=== PATIENT | male | born 1940 | race Caucasian/White ===

== ENCOUNTER 2020-01-19 16:49 | Emergency (ER) | payer MEDICARE ==
[2020-01-19] MEDS ORDERED: ALPR1TAB7 PO (17:14)
[2020-01-19] MEDS ORDERED: ZOLP10TA2 PO (17:18)
[2020-01-19] MEDS ORDERED: ATOR80TA PO (17:18)
[2020-01-19] MEDS ORDERED: HYDR-3980 PO (17:18)
[2020-01-19] MEDS ORDERED: CARB200T PO (17:18)
[2020-01-19] MEDS ORDERED: TRAZ-252 PO (17:18)
[2020-01-19] MEDS ORDERED: LOSA100T31 PO (17:18)
[2020-01-19] MEDS ORDERED: ACETAMINOPHEN 325 MG TABLET PO ONE (18:00)
[2020-01-19] MEDS ORDERED: ACETAMINOPHEN 325 MG TABLET ONE (18:37)
== END 2020-01-19 18:46 | disposition home or self-care (01) ==
DX: L76.22 Postprocedural hemorrhage of skin and subcutaneous tissue following other procedure (principal); I10 Essential (primary) hypertension; E78.00 Pure hypercholesterolemia, unspecified; Z98.890 Other specified postprocedural states; Z85.22 Personal history of malignant neoplasm of nasal cavities, middle ear, and accessory sinuses; Z79.899 Other long term (current) drug therapy

== ENCOUNTER 2021-05-29 11:49 | Emergency (ER) | payer MEDICARE ==
[~2021-05-29] VITALS: Ht 180.3 cm; Wt 83.9 kg
[~2021-05-29 11:49] MED LIST: ALPR1TAB7 PO; ATOR80TA PO; CARB200T PO; HYDR-3980 PO; LOSA100T31 PO; TRAZ-252 PO; ZOLP10TA2 PO
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
--- NOTE | 2021-05-29 12:01 | NUR ---
CLIENT DIRECTOR AT BEDSIDE FOR GLUCOSE CHECK
--- NOTE | 2021-05-29 12:13 | NUR ---
HOLLAND RENEEW,CALLED FOR POSSIBLE PLACEMENT AND OR ADULT PROTECTIVE SERVICES PER DR DE JESUS SINCE HE CAN'T TAKE CARE OF HIMSELF AND HIS
--- NOTE | 2021-05-29 12:15 | NUR ---
PT TO RADIOLOGY FOR HEAD CT SCAN VIA [facility].
[2021-05-29] MEDS ORDERED: IV NS 0.9% 1,000 ML BAG IV ONE (12:30)
--- NOTE | 2021-05-29 12:30 | NUR ---
BLOOD COLLECTED AND SENT TO LAB
--- NOTE | 2021-05-29 12:35 | NUR ---
URINE COLLECTED AND SENT TO LAB
--- NOTE | 2021-05-29 13:10 | NUR ---
PT AMBULATED TO THE RESTROOM, STEADY GAIT
[2021-05-29 13:32] LABS: BASOPHILS % (AUTO) 0.5 % (0.0-2.0); EOSINOPHILS % (AUTO) 1.9 % (0.0-6.0); HEMATOCRIT 33 % (39-51); HEMOGLOBIN 11.2 g/dL (13.5-17.5); LYMPHOCYTES # (AUTO) 0.6 K/uL (0.8-4.8); LYMPHOCYTES % (AUTO) 12.2 % (20.0-44.0); MEAN CORPUSCULAR HGB CONC 34 g/dl (31.0-36.0); MEAN CORPUSCULAR VOLUME 92 fL (80-96); MONOCYTES # (AUTO) 0.4 K/uL (0.1-1.30); MONOCYTES % (AUTO) 8.6 % (2.0-12.0); NEUTROPHILS % (AUTO) 76.8 % (43.0-81.0); PLATELET COUNT (AUTO) 196 K/uL (150-450); RED BLOOD CELL COUNT(AUTO) 3.57 MIL/uL (4.5-6.0); WHITE BLOOD COUNT (AUTO) 5.2 K/uL (4.3-11.0)
[2021-05-29 13:51] LABS: CALCIUM, SERUM 8.4 mg/dL (8.5-10.1); CARBON DIOXIDE 28 mmol/L (21-32); CHLORIDE 104 mmol/L (98-107); CREATININE 0.9 mg/dL (0.6-1.3); GLUCOSE 152 mg/dL (74-106); POTASSIUM 3.6 mmol/L (3.5-5.1); SODIUM SERUM 138 mmol/L (136-145); UREA NITROGEN, BLOOD 18 mg/dL (7-18)
[2021-05-29 13:53] LABS: SERUM AMMONIA 26 umol/L (11-32)
[2021-05-29 13:57] LABS: ALANINE AMINOTRANSFERASE 23 U/L (12-78); ALBUMIN 3.3 g/dL (3.4-5.0); ALKALINE PHOSPHATASE 79 U/L (46-116); ASPARTATE AMINOTRANSFERASE 25 U/L (15-37); BILIRUBIN,DIRECT 0.2 mg/dL (0.0-0.2); BILIRUBIN,TOTAL 0.4 mg/dL (0.2-1.0); TOTAL PROTEIN, SERUM 6.6 g/dL (6.4-8.2)
[2021-05-29 14:10] LABS: ALCOHOL, BLOOD < 3 mg/dL (0-0)
[2021-05-29 14:34] LABS: BILIRUBIN,URINE NEGATIVE (NEGATIVE); COLOR,URINE YELLOW (YELLOW); LEUKOCYTE ESTERASE ,URINE NEGATIVE (NEGATIVE); NITRITE, URINE NEGATIVE (NEGATIVE); PROTEIN,URINE NEGATIVE (NEGATIVE); UGLUCOSE NEGATIVE (NEGATIVE); UROBILINOGEN,URINE 0.2 EU/dL (0.2)
[2021-05-29 14:36] LABS: THYROID STIMULATING HORMONE 4.241 uIU/mL (0.358-3.74)
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
--- NOTE | 2021-05-29 15:20 | NUR ---
IV removed. Catheter intact and site benign. Pressure and 4x4 applied to site. No bleeding noted.
--- NOTE | 2021-05-29 15:40 | NUR ---
Patient discharged to home in stable condition. Written and verbal after care instructions given. Patient verbalizes understanding of instruction.
[2021-05-29 16:01] VITALS: BP 140/57
== END 2021-05-29 16:02 | disposition home or self-care (01) ==
LOC: ER 11:51
DX: G93.40 Encephalopathy, unspecified (principal); E16.2 Hypoglycemia, unspecified; R00.1 Bradycardia, unspecified; I10 Essential (primary) hypertension; E78.00 Pure hypercholesterolemia, unspecified; Z87.728 Personal history of other specified (corrected) congenital malformations of nervous system and sense organs; Z85.22 Personal history of malignant neoplasm of nasal cavities, middle ear, and accessory sinuses; M19.90 Unspecified osteoarthritis, unspecified site; Z79.891 Long term (current) use of opiate analgesic; Z79.811 Long term (current) use of aromatase inhibitors; Z79.899 Other long term (current) drug therapy; V49.9XXA Car occupant (driver) (passenger) injured in unspecified traffic accident, initial encounter; Y93.89 Activity, other specified; Y92.89 Other specified places as the place of occurrence of the external cause; Y99.8 Other external cause status
CPT/HCPCS: 36415; 70450; 71045; 80048; 80076; 80307; 80320; 81003; 82140; 82962; 84443; 84484; 85025; 93005; 96360; 99285; J7030; G0480

== ENCOUNTER 2021-08-24 21:50 | Inpatient (IN) | payer MEDICARE ==
[~2021-08-24] VITALS: Ht 182.9 cm; Wt 72.6 kg
--- NOTE | 2021-08-24 22:20 | NUR ---
CANDACE 102 FROM HOME C/O OD ON TEGRETOL TOOK 3 TABS WITHIN 3 HRS. C/O GEN WEAKNESS. PT A/OX3. TOLERATING R/A WELL WITH NO SOB. CONNECTED PT TO POX AND MONITOR. SAFETY MEASURES IN PLACE
--- NOTE | 2021-08-24 22:29 | NUR ---
PER POSION CONTROL (DENIS) RETAKE TEGRATOL LEVEL IN 4 HOURS WATCH OUT FOR: SEIZURE HYPONATREMIA
[2021-08-24] MEDS ORDERED: IV NS 0.9% 1,000 ML BAG IV ONE (23:00)
--- NOTE | 2021-08-24 23:09 | NUR ---
RAC #18G S/L; PATENT AND INTACT. BLOOD COLLECTED AND SENT TO LAB
--- NOTE | 2021-08-24 23:10 | NUR ---
COVID ANTIGEN SWAB COLLECTED AND SENT TO LAB
--- NOTE | 2021-08-24 23:24 | NUR ---
URINE SPECIMEN SENT TO LAB
[2021-08-24 23:26] LABS: BASOPHILS % (AUTO) 0.2 % (0.0-2.0); EOSINOPHILS % (AUTO) 0.3 % (0.0-6.0); HEMATOCRIT 45 % (39-51); HEMOGLOBIN 15.1 g/dL (13.5-17.5); LYMPHOCYTES # (AUTO) 0.5 K/uL (0.8-4.8); LYMPHOCYTES % (AUTO) 6.2 % (20.0-44.0); MEAN CORPUSCULAR HGB CONC 33 g/dl (31.0-36.0); MEAN CORPUSCULAR VOLUME 90 fL (80-96); MONOCYTES # (AUTO) 0.5 K/uL (0.1-1.30); MONOCYTES % (AUTO) 5.8 % (2.0-12.0); NEUTROPHILS # (AUTO) 7.7 K/uL (1.8-8.9); NEUTROPHILS % (AUTO) 87.5 % (43.0-81.0); PLATELET COUNT (AUTO) 280 K/uL (150-450); RED BLOOD CELL COUNT(AUTO) 5.04 MIL/uL (4.5-6.0); WHITE BLOOD COUNT (AUTO) 8.8 K/uL (4.3-11.0)
[2021-08-25 00:04] LABS: BILIRUBIN,URINE SMALL (NEGATIVE); COLOR,URINE YELLOW (YELLOW); LEUKOCYTE ESTERASE ,URINE NEGATIVE (NEGATIVE); NITRITE, URINE NEGATIVE (NEGATIVE); PH,URINE 5.5 (5.0-8.0); PROTEIN,URINE 30 mg/dl (NEGATIVE); UGLUCOSE NEGATIVE (NEGATIVE); UROBILINOGEN,URINE 0.2 EU/dL (0.2)
[2021-08-25 00:07] LABS: ALANINE AMINOTRANSFERASE 28 U/L (12-78); ALBUMIN 3.5 g/dL (3.4-5.0); ALKALINE PHOSPHATASE 106 U/L (46-116); ASPARTATE AMINOTRANSFERASE 41 U/L (15-37); BILIRUBIN,TOTAL 0.4 mg/dL (0.2-1.0); CALCIUM, SERUM 8.5 mg/dL (8.5-10.1); CARBON DIOXIDE 29 mmol/L (21-32); CHLORIDE 102 mmol/L (98-107); CREATININE 0.8 mg/dL (0.6-1.3); GLUCOSE 166 mg/dL (74-106); POTASSIUM 4.6 mmol/L (3.5-5.1); SODIUM SERUM 136 mmol/L (136-145); TOTAL PROTEIN, SERUM 7.6 g/dL (6.4-8.2); UREA NITROGEN, BLOOD 24 mg/dL (7-18)
[2021-08-25 00:12] LABS: ACETAMINOPHEN < 2 ug/ml (10-30); ALCOHOL, BLOOD < 3 mg/dL (0-0)
[2021-08-25 00:18] LABS: CARBAMAZEPINE (TEGRETOL) 20.5 ug/ml (4-11.9)
--- NOTE | 2021-08-25 00:18 | NUR ---
CARBAMAZIPINE 20.5
[2021-08-25] MEDS ORDERED: IV NS 0.9% 1,000 ML BAG IV ONE (02:00)
[2021-08-25] MEDS ORDERED: LABETALOL HCL IV 100MG VIAL ONE (02:10)
--- NOTE | 2021-08-25 02:16 | NUR ---
BP 196/144, HR 119. ADMINISTERED LABETOLOL 10MG IVP PER DR. MALLORY ORDER. WILL REASSES V/S IN 30 MINUTES.
[2021-08-25] MEDS ORDERED: ONDANSETRON HCL/PF 4 MG/2 ML VIAL IVP PRN (02:30)
[2021-08-25] MEDS ORDERED: ACETAMINOPHEN 325 MG TABLET PO PRN (02:30)
[2021-08-25] MEDS ORDERED: MAG HYDROX/AL HYDROX/SIMETH 30 ML UDC PO PRN (02:30)
[2021-08-25] MEDS ORDERED: MORPHINE SULFATE INJ 2 MG/ML DISP.SYRIN IV PRN (02:30)
[2021-08-25] MEDS ORDERED: LABETALOL 20 MG/4 ML VIAL IV ONE (02:30)
[2021-08-25] MEDS ORDERED: MAGNESIUM HYDROXIDE 30 ML UDC PO PRN (02:30)
[2021-08-25] MEDS ORDERED: Z GUARD REMEDY 4 OZ OINT TP PRN (02:30)
--- NOTE | 2021-08-25 02:32 | NUR ---
MRSA SWAB COLLECTED AND SENT TO LAB. PATIENT'S BELONGINGS LIST DONE.
--- NOTE | 2021-08-25 03:19 | NUR ---
REPORT GIVEN TO VEE MAR RN FOR SANCHEZ.
--- NOTE | 2021-08-25 03:19 | NUR ---
RN NOTE REPORT RECEIVED BY JAMISON PARIS FOR SANCHEZ.
--- NOTE | 2021-08-25 03:25 | NUR ---
RN NOTE PT TRANSFERRED TO [facility] VIA GURNEY FROM ER. PT IS ON ROOM AIR SHOWING NO S/SX OF RESP DISTRESS/SOB. BREATHING EVEN AND UNLABORED. PT DENIES ANY PAIN. PT IS A/OX4. ON RASCHEL KNITTING MACHINE OPERATOR CURRENTLY SHOWING ST. WOUND PICTURES PLACED IN CHART. IV ACCESS NOTED ON RIGHT AC #18. LINE FLUSHED, PATENT, AND INTACT WITH NO SIGNS OF INFILTRATION. ALL SAFETY MEASURES IMPLEMENTED. CALL LIGHT WITHIN REACH. HOB ELEVATED. BED LOCKED AND IN LOWEST POSITION. SIDE RAILS UP. WILL CONTINUE TO MONITOR AND ASSESS FOR ANY CHANGES DURING SHIFT.
--- NOTE | 2021-08-25 03:31 | NUR ---
PT TRANSFERRED TO [facility] VIA ACLS PROTOCOL. ALL BELONGINGS AT PT'S BEDSIDE
[2021-08-25 03:40] VITALS: BP 161/110
[2021-08-25] MEDS: IV NS 0.9% 1,000 ML IV PRN ×2 (06:05→20:04)
--- NOTE | 2021-08-25 06:26 | NUR ---
RN NOTE NO CHANGES IN PT CONDITION DURING SHIFT. PT IS ON ROOM AIR SHOWING NO S/SX OF RESP DISTRESS/SOB. BREATHING EVEN AND UNLABORED. IV ACCESS NOTED ON RIGHT AC #18. LINE FLUSHED, PATENT, AND INTACT WITH NO SIGNS OF INFILTRATION. ALL SAFETY MEASURES IMPLEMENTED. ALL DUE MEDS GIVEN ORDERED. PT KEPT CLEAN AND COMFORTABLE. CALL LIGHT WITHIN REACH. HOB ELEVATED. BED LOCKED AND IN LOWEST POSITION. SIDE RAILS UP. WILL ENDORSE TO MORNING SHIFT RN FOR SANCHEZ.
--- NOTE | 2021-08-25 07:42 | NUR ---
FITNESS SALES CONSULTANT OPENING NOTES: RN OPENING NOTE RECEIVED PT IN BED, A/O X3-4. RESPIRATION IS EVEN AND UNLABORED, NO SOB NOTED AT THIS TIME. SKIN WARM AND INTACT. RIGHT AC HEPLOCK GAUGE [address] RUNNING NS AT 75CC/HR. ALL SAFETY MEASURES IN PLACE. BED LOCKED AND IN LOWEST POSITION, BED ALARM ON. CALL LIGHT WITHIN REACH, 3 SIDE RAILS UP. WILL CONTINUE TO MONITOR.
[2021-08-25 08:00] VITALS: BP 139/99
--- NOTE | 2021-08-25 08:00 | NUR ---
WOUND CARE CONSULT: PT PRESENTS WITH SKIN TEARS TO BILATERAL ARMS, PRESENT ON ADMISSION. PT DEMONSTRATES ABILITY TO TURN AND REPOSITION IN BED AND IS CONTINENT. DISCUSSED WOUND CARE AND SKIN PROTECTION WITH NURSING STAFF. MD IN AGREEMENT WITH PLAN OF CARE.
[2021-08-25] MEDS: PANTOPRAZOLE 40 MG TABLET.DR PO SCH (08:07)
[2021-08-25] MEDS ORDERED: ATOR80TA PO (10:06)
[2021-08-25] MEDS ORDERED: METO25TA20 PO (10:07)
[2021-08-25 12:00] VITALS: BP 141/110
[2021-08-25 16:00] VITALS: BP 134/97
--- NOTE | 2021-08-25 16:14 | NUR ---
rn notes: per poison control dept called and reuest EKG done due to tachycardia and kylee blood pressure, step daughter called and request psych consult saying he may be suicidal that is why he swallow 3 tablet of tegretol.patient denied any suicidal thought, seems very confused and forgetful, call DR Rashard Ann who said he does not seem suicidal to me with order of EKG and psych consult
--- NOTE | 2021-08-25 19:30 | NUR ---
RN CLOSING NOTES: PT IN BED, A/O X3-4 BUT VERY CONFUSED AND FORGETFUL. RESPIRATION IS EVEN AND UNLABORED, NO SOB NOTED AT THIS TIME. SKIN WARM AND INTACT. SINUS TACHY ON TEL3 MONITOR, md AWARE,ekg DONE .RIGHT AC HEPLOCK GAUGE [address] RUNNING NS AT 75CC/HR. ALL SAFETY MEASURES IN PLACE. BED LOCKED AND IN LOWEST POSITION, BED ALARM ON. CALL LIGHT WITHIN REACH, 3 SIDE RAILS UP. WILL CONTINUE TO MONITOR.
--- NOTE | 2021-08-25 21:08 | NUR ---
PRICE ANALYST NOTE POISON CONTROL LINNETTE CALLED AND INFORMED IF TONIGHT EKG QRS IS GREATER THAN 500 THEM 1-2 GM MAG RECOMMENDED IF BELOW 500 NO NEED TO DO ANY THING AT THIS TIME. WILL FOLLOW UP.
[2021-08-25 22:00] VITALS: BP 138/109
--- NOTE | 2021-08-25 22:28 | NUR ---
LABORATORY AIDE NOTE EKG DONE QRSD IS 85, HEATHER INFORMED NO NEW ORDER AT THIS TIME.
--- NOTE | 2021-08-25 22:50 | NUR ---
hospice spiritual care coordinator Opening Note Pt received lying in bed awake, A&O x4, forgetful. Pt on RA with O2sat 97%; no s/s of resp distress, no SOB noted, non-labored breathing. Pt attached to external monitor, ST noted with HR of 130; pt denies any chest pain. IV access right AC 18G intact and patent with NS at 75 ml/hr; no s/s of infiltration. Will continue to implement seizure precautions. Bed in lowest position, side rails up x3, call light within reach. Will monitor throughout the night.
[2021-08-26] VITALS: BP 165/126
[2021-08-26] MEDS: LORAZEPAM INJ 2 MG/ML VIAL IV PRN (00:56)
--- NOTE | 2021-08-26 01:06 | NUR ---
Patient feels anxious, restless and requests for "something to sleep". Ativan 1 mg IV PRN given at 0056. Will follow-up for effectiveness.
[2021-08-26 04:00] VITALS: BP 165/118
--- NOTE | 2021-08-26 06:31 | NUR ---
manager science Closing Note Pt in bed awake, slept intermittently, A&O x4, but forgetful. Pt on RA, O2sat 98%; no s/s of resp distress, no SOB, non-labored breathing. Pt attached to monitor; ST throughout the night with HR 131. IV right AC 18G intact and patent; no s/s of infiltration, NS at 75 ml/hr. All due meds and fluids given. Bed in lowest position, call light within reach, side rails up x3. Will endorse to dayshift nurse to continue care.
[2021-08-26 06:36] LABS: BASOPHILS % (AUTO) 0.3 % (0.0-2.0); EOSINOPHILS % (AUTO) 1.3 % (0.0-6.0); HEMATOCRIT 41 % (39-51); LYMPHOCYTES % (AUTO) 14.1 % (20.0-44.0); MEAN CORPUSCULAR HGB CONC 34 g/dl (31.0-36.0); MEAN CORPUSCULAR VOLUME 90 fL (80-96); MONOCYTES # (AUTO) 0.6 K/uL (0.1-1.30); MONOCYTES % (AUTO) 8.3 % (2.0-12.0); NEUTROPHILS # (AUTO) 5.5 K/uL (1.8-8.9); PLATELET COUNT (AUTO) 257 K/uL (150-450); WHITE BLOOD COUNT (AUTO) 7.2 K/uL (4.3-11.0)
[2021-08-26 06:48] LABS: CALCIUM, SERUM 7.6 mg/dL (8.5-10.1); CARBON DIOXIDE 31 mmol/L (21-32); CHLORIDE 104 mmol/L (98-107); CREATININE 0.6 mg/dL (0.6-1.3); GLUCOSE 90 mg/dL (74-106); MAGNESIUM 1.8 mg/dL (1.8-2.4); PHOSPHORUS 2.7 mg/dL (2.5-4.9); SODIUM SERUM 141 mmol/L (136-145); UREA NITROGEN, BLOOD 9 mg/dL (7-18)
[2021-08-26 07:30] LABS: CARBAMAZEPINE (TEGRETOL) 4.9 ug/ml (4-11.9)
[2021-08-26 08:00] VITALS: BP 178/110
--- NOTE | 2021-08-26 08:01 | NUR ---
RN OPENING NOTES: RECEIVED PT IN BED, A/O X3-4. RESPIRATION IS EVEN AND UNLABORED, NO SOB NOTED AT THIS TIME. SKIN WARM AND INTACT. RIGHT AC HEPLOCK GAUGE [address] RUNNING NS AT 75CC/HR. ALL SAFETY MEASURES IN PLACE. BED LOCKED AND IN LOWEST POSITION, BED ALARM ON. CALL LIGHT WITHIN REACH, 3 SIDE RAILS UP.
[2021-08-26] MEDS: POTASSIUM CHLORIDE 20 MEQ TAB.PRT.SR PO SCH ×2 (09:30→11:12)
[2021-08-26] MEDS: PANTOPRAZOLE 40 MG TABLET.DR PO SCH (10:34)
[2021-08-26] MEDS ORDERED: POTASSIUM CHLORIDE 20 MEQ TAB.PRT.SR PO SCH (11:00)
[2021-08-26] MEDS ORDERED: hydrALAZINE HCL 25 MG TABLET PO PRN (11:30)
[2021-08-26 12:00] VITALS: BP 131/92
[2021-08-26 13:34] LABS: THYROID STIMULATING HORMONE 4.896 uIU/mL (0.358-3.74)
[2021-08-26 16:00] VITALS: BP 145/96
[2021-08-26] MEDS: CARBAMAZEPINE 200 MG TABLET PO SCH ×2 (16:16→20:46)
[2021-08-26] MEDS: METOPROLOL TARTRATE 25 MG TABLET PO SCH (16:16)
[2021-08-26] MEDS: IV NS 0.9% 1,000 ML IV PRN (18:19)
--- NOTE | 2021-08-26 19:00 | NUR ---
RN NOTE PATIENT REFUSES TO BE CONNECTED TO IV RUNNING NS AT 75MLS HR. PER PATIENT "WILL LIKE A BREAK AND RESTART IN THE AM" WILL ENDORSE TO NIGHT NURSE
--- NOTE | 2021-08-26 19:13 | NUR ---
RN CLOSING NOTES: PT IN BED, A/O X3-4 BUT VERY CONFUSED AND FORGETFUL. RESPIRATION IS EVEN AND UNLABORED, NO SOB NOTED AT THIS TIME. SKIN WARM AND INTACT. ALL SAFETY MEASURES IN PLACE. BED LOCKED AND IN LOWEST POSITION, BED ALARM ON. CALL LIGHT WITHIN REACH, 3 SIDE RAILS UP.
[2021-08-26 20:00] VITALS: BP 132/84
--- NOTE | 2021-08-26 20:21 | NUR ---
wind tunnel technician Opening Note Pt received in bed, awake, A/O x3, requires reorientation, cooperative. Pt on RA with O2sat >90%; no s/s of resp distress, no SOB noted, non-labored breathing; appears comfortable. Attached to external monitor, noted to have Aflutter with HR 132; pt denies feelings of chest pain or SOB. IV access right AC 18G; received pt disconnected from IV fluids; dayshift nurse endorsed pt wanted a break from receiving IV fluids. Bed in lowest position, call light within reach, side rails up x3. Will continue to monitor throughout the night.
[2021-08-26] MEDS: ATORVASTATIN 40 MG TABLET PO SCH (21:31)
[2021-08-27] VITALS (9 sets, daily range): BP systolic 11–156; BP diastolic 63–106
--- NOTE | 2021-08-27 | NUR ---
RN Note Pt reports of feeling anxious and requests to receive ativan. Due to pt's IV line leaking, 18G IV right AC was discontinued. Requested order from Dr. Parul Pantoja for Ativan IM; Dr. Pantoja ordered Ativan 0.5 mg IM x1. Order obtained and carried out.
[2021-08-27] MEDS: LORAZEPAM INJ 2 MG/ML VIAL IV PRN ×2 (00:43→20:36)
--- NOTE | 2021-08-27 01:02 | NUR ---
RN Note IV start attempted by 2 nurses, but unsuccessful. Mireille from ICU successfully started new IV access on left hand 20G; appears intact and patent. Will continue to monitor throughout the night.
--- NOTE | 2021-08-27 01:09 | NUR ---
RN Note Pt agreed to be reconnected to IV with NS running at 75 ml/hr.
[2021-08-27 06:20] LABS: BASOPHILS % (AUTO) 0.2 % (0.0-2.0); EOSINOPHILS % (AUTO) 1.4 % (0.0-6.0); HEMATOCRIT 40 % (39-51); HEMOGLOBIN 13.6 g/dL (13.5-17.5); LYMPHOCYTES # (AUTO) 1.2 K/uL (0.8-4.8); LYMPHOCYTES % (AUTO) 12.9 % (20.0-44.0); MEAN CORPUSCULAR HGB CONC 34 g/dl (31.0-36.0); MEAN CORPUSCULAR VOLUME 90 fL (80-96); MONOCYTES # (AUTO) 0.8 K/uL (0.1-1.30); MONOCYTES % (AUTO) 8.3 % (2.0-12.0); NEUTROPHILS # (AUTO) 7.1 K/uL (1.8-8.9); NEUTROPHILS % (AUTO) 77.2 % (43.0-81.0); PLATELET COUNT (AUTO) 248 K/uL (150-450); WHITE BLOOD COUNT (AUTO) 9.1 K/uL (4.3-11.0)
--- NOTE | 2021-08-27 06:20 | NUR ---
RN Note Pt refuses to be connected to IV with NS running at 75 ml/hr saying that "it's a bother". Will endorse to oncoming daysflft nurse.
--- NOTE | 2021-08-27 06:21 | NUR ---
automotive starter repairer Closing Note Pt in bed, awake, A/O x4, forgetful, requires reorientation and reminders, cooperative. Pt reports of not being able to sleep at night. Pt on RA with O2sat 99%; no s/s of resp distress, no SOB noted, non-labored breathing; appears comfortable. Attached to external monitor, pt was Aflutter throughout the night with HR 135; no chest pain or SOB per pt report. IV access right AC 18G d/c'd and new IV started at left hand 20G. New IV intact and patent; no s/s of infiltration. Pt asks to be disconnected from IVF and refuses to be connected to it. Bed in lowest position, side rails up x3, call light within reach. Will endorse to dayshift nurse to continue care.
[2021-08-27 07:11] LABS: CALCIUM, SERUM 8.3 mg/dL (8.5-10.1); CARBON DIOXIDE 29 mmol/L (21-32); CHLORIDE 102 mmol/L (98-107); CREATININE 0.7 mg/dL (0.6-1.3); GLUCOSE 99 mg/dL (74-106); MAGNESIUM 1.9 mg/dL (1.8-2.4); PHOSPHORUS 2.9 mg/dL (2.5-4.9); POTASSIUM 3.2 mmol/L (3.5-5.1); SODIUM SERUM 138 mmol/L (136-145); UREA NITROGEN, BLOOD 11 mg/dL (7-18)
--- NOTE | 2021-08-27 08:00 | NUR ---
desk attendant Opening Note Pt received in bed, awake, A/O x3, requires reorientation, cooperative. Pt on RA; no s/s of resp distress, no SOB noted, non-labored breathing; appears comfortable. Attached to external monitor, noted to have Aflutter earlier in the shift with HR 130, later switched to Afib; pt denies feelings of chest pain, palpitations, or SOB. IV access left hand 20G; pt not connected to IVF NS 75 ml/hr, stating it's a bother to him. Bed in lowest position, call light within reach, side rails up x3. Will continue to monitor throughout the day.
[2021-08-27] MEDS: CARBAMAZEPINE 200 MG TABLET PO SCH ×4 (08:33→21:10)
[2021-08-27] MEDS: METOPROLOL TARTRATE 25 MG TABLET PO SCH ×2 (08:34→16:46)
[2021-08-27] MEDS: PANTOPRAZOLE 40 MG TABLET.DR PO SCH (08:34)
[2021-08-27] MEDS ORDERED: AMIODARONE 150 MG in IV D5W 100 ML IV ONE (10:00)
[2021-08-27] MEDS: AMIODARONE 450 MG in IV D5W 241 ML IV PRN ×2 (10:47→16:49)
[2021-08-27] MEDS ORDERED: POTASSIUM CHLORIDE 20 MEQ TAB.PRT.SR PO SCH (12:00)
--- NOTE | 2021-08-27 14:26 | NUR ---
RN Note Mid-shift endorsement given to Mili PARIS. Updated RN with pt's health status and all due meds and fluids that were administered from [id number].
--- NOTE | 2021-08-27 18:44 | NUR ---
RN CLOSING NOTES: PT IN BED, A/O X3-4L. RESPIRATION IS EVEN AND UNLABORED, NO SOB NOTED AT THIS TIME PATIENT ON ROOM AIR. PATIENT IS AMBULATORY TO BEDSIDE COMMODE. LEFT HAND 20G RUNNING AMIODARONE 0.5MG/MIN. ALL SAFETY MEASURES IN PLACE. BED LOCKED AND IN LOWEST POSITION, BED ALARM ON. CALL LIGHT WITHIN REACH, 3 SIDE RAILS UP. WILL ENDORSE TO NIGHT NURSE FOR SANCHEZ.
--- NOTE | 2021-08-27 19:54 | NUR ---
RN NOTE PATIENT IN BED ALERT AND ORIENTED X4, FORGETFUL AT TIMES. ON ROOM AIR, NO S/S OF RESPIRATORY DISTRESS. DENIES ANY PAIN AT THIS TIME. ON TELE, A-FLUTTER 120'S. ON AMIO @ 0.5MG/HR. INFUSING WELL ON RIGHT HAND #20. ALSO HAS IV ACCESS ON LEFT HAND # 20 PATENT AND INTACT. BED LOCKED AND IN LOWEST POSITION. CALL LIGHT WITHIN REACH. ALL NEEDS ANTICIPATED.
[2021-08-27] MEDS: ATORVASTATIN 40 MG TABLET PO SCH (21:10)
[2021-08-28] VITALS: BP 149/88
[2021-08-28 04:00] VITALS: BP 147/90
[2021-08-28 06:13] LABS: BASOPHILS % (AUTO) 0.2 % (0.0-2.0); EOSINOPHILS % (AUTO) 0.6 % (0.0-6.0); HEMATOCRIT 43 % (39-51); HEMOGLOBIN 14.7 g/dL (13.5-17.5); LYMPHOCYTES % (AUTO) 9.5 % (20.0-44.0); MEAN CORPUSCULAR HGB CONC 34 g/dl (31.0-36.0); MEAN CORPUSCULAR VOLUME 89 fL (80-96); MONOCYTES # (AUTO) 0.8 K/uL (0.1-1.30); MONOCYTES % (AUTO) 7.3 % (2.0-12.0); NEUTROPHILS # (AUTO) 8.9 K/uL (1.8-8.9); NEUTROPHILS % (AUTO) 82.4 % (43.0-81.0); PLATELET COUNT (AUTO) 250 K/uL (150-450); RED BLOOD CELL COUNT(AUTO) 4.81 MIL/uL (4.5-6.0); WHITE BLOOD COUNT (AUTO) 10.8 K/uL (4.3-11.0)
[2021-08-28 06:32] LABS: CALCIUM, SERUM 8.4 mg/dL (8.5-10.1); CARBON DIOXIDE 27 mmol/L (21-32); CHLORIDE 100 mmol/L (98-107); CREATININE 0.8 mg/dL (0.6-1.3); GLUCOSE 103 mg/dL (74-106); MAGNESIUM 1.8 mg/dL (1.8-2.4); POTASSIUM 3.6 mmol/L (3.5-5.1); SODIUM SERUM 135 mmol/L (136-145); UREA NITROGEN, BLOOD 12 mg/dL (7-18)
--- NOTE | 2021-08-28 06:46 | NUR ---
RN NOTE PATIENT RESTING IN BED, ALERT AND ORIENTED X3, FORGETFUL. ON ROOM AIR, NO SOB NOTED. ON TELE, A-FLUTTER 120'S. ON AMIO @ 0.5MG/HR. PATIENT PULLED OUT BOTH IV ACCESS (RIGHT AND LEFT HAND). INSERTED NEW IV ACCESS ON RIGHT AC #20 AND LEFT FOREARM #20 PATENT AND INTACT. DUE MEDS GIVEN ORDERED. BED LOCKED AND IN LOWEST POSITION. CALL LIGHT WITHIN REACH. WILL ENDORSE TO AM SHIFT.
--- NOTE | 2021-08-28 07:30 | NUR ---
RN OPENING NOTE PT IN BED, A/O X3-4L. RESPIRATION IS EVEN AND UNLABORED, NO SOB NOTED AT THIS TIME PATIENT ON ROOM AIR. PATIENT IS AMBULATORY TO BEDSIDE COMMODE. RAC 20G RUNNING AMIODARONE 0.5MG/MIN. PT ON TELE WITH SINUS TACHY IN 120'S AFIB. ALL SAFETY MEASURES IN PLACE. BED LOCKED AND IN LOWEST POSITION, BED ALARM ON. CALL LIGHT WITHIN REACH, 3 SIDE RAILS UP. WILL CONTINUE TO MONITOR.
[2021-08-28 08:00] VITALS: BP 156/111
[2021-08-28] MEDS: PANTOPRAZOLE 40 MG TABLET.DR PO SCH (08:08)
[2021-08-28] MEDS: CARBAMAZEPINE 200 MG TABLET PO SCH ×4 (08:08→21:44)
[2021-08-28] MEDS: METOPROLOL TARTRATE 25 MG TABLET PO SCH ×3 (08:08→16:46)
[2021-08-28] MEDS: AMIODARONE 450 MG in IV D5W 241 ML IV PRN ×2 (09:54→22:04)
[2021-08-28 12:00] VITALS: BP 144/102
[2021-08-28 16:00] VITALS: BP 114/80
[2021-08-28] MEDS: APIXABAN 5 MG TABLET PO SCH (16:46)
--- NOTE | 2021-08-28 18:45 | NUR ---
RN CLOSING NOTE PT REMAINED STABLE THROUGHOUT SHIFT. PT IN BED, A/O X3-4L. RESPIRATION IS EVEN AND UNLABORED, NO SOB NOTED AT THIS TIME PATIENT ON ROOM AIR. PATIENT IS AMBULATORY TO BEDSIDE COMMODE. RAC 20G RUNNING AMIODARONE 0.5MG/MIN. PT ON TELE WITH SINUS TACHY IN 120'S AFIB. ALL SAFETY MEASURES IN PLACE. BED LOCKED AND IN LOWEST POSITION, BED ALARM ON. CALL LIGHT WITHIN REACH, 3 SIDE RAILS UP. WILL ENDORSE TO STOCK COUNTER RN.
--- NOTE | 2021-08-28 19:32 | NUR ---
RN NOTES RECEIVED PT FOR CONTINUITY OF CARE. PATIENT A/OX2-3 IN NO S/SX OF ACUTE DISTRESS AT THIS TIME; CURRENTLY ON ROOM AIR; WITH 02 SAT >95% AT THIS TIME. WITH AMIO DRIP RECEIVED @ 0.5MG/MIN RUNNING PER PROTOCOL. WILL ENSURE SAFETY MEASURES WITHIN THE SHIFT. PATIENT BED ALARM IS ON. HEAD OF BED ELEVATED. BED IS LOCKED, IN LOWEST POSITION AND SIDE RAILS UP. CALL LIGHT WITHIN REACH OF THE PATIENT. APPLICABLE ISOLATION PRECAUTIONS IN PLACE. WILL CONTINUE TO MONITOR AND REASSESS FOR ANY CHANGES AND WILL CARRY OUT ANY ONGOING AND ACTIVE MD ORDER.
[2021-08-28 20:00] VITALS: BP 146/105
[2021-08-28] MEDS: ATORVASTATIN 40 MG TABLET PO SCH (21:44)
[2021-08-28] MEDS ORDERED: AMIODARONE 150 MG/3 ML VIAL IV ONE (21:53)
[2021-08-28] MEDS: LORAZEPAM INJ 2 MG/ML VIAL IV PRN (22:10)
[2021-08-29] VITALS (28 sets, daily range): BP systolic 96–164; BP diastolic 53–118
--- NOTE | 2021-08-29 04:00 | NUR ---
RN NOTES NO NOTED CHANGES IN PATIENT CONDITION AT THIS TIME; PATIENT VITALS STABLE, NO SIGNS OF ACUTE RESPIRATORY DISTRESS. AM PATIENT CARE RENDERED.WILL CONTINUE TO MONITOR AND REASSESS FOR ANY CHANGES THROUGHOUT THE SHIFT.
[2021-08-29 06:28] LABS: BASOPHILS % (AUTO) 0.3 % (0.0-2.0); EOSINOPHILS % (AUTO) 1.6 % (0.0-6.0); HEMATOCRIT 43 % (39-51); HEMOGLOBIN 15.1 g/dL (13.5-17.5); LYMPHOCYTES # (AUTO) 1.1 K/uL (0.8-4.8); LYMPHOCYTES % (AUTO) 15.8 % (20.0-44.0); MEAN CORPUSCULAR HGB CONC 36 g/dl (31.0-36.0); MEAN CORPUSCULAR VOLUME 89 fL (80-96); MONOCYTES # (AUTO) 0.7 K/uL (0.1-1.30); MONOCYTES % (AUTO) 9.6 % (2.0-12.0); NEUTROPHILS % (AUTO) 72.7 % (43.0-81.0); PLATELET COUNT (AUTO) 244 K/uL (150-450); RED BLOOD CELL COUNT(AUTO) 4.81 MIL/uL (4.5-6.0); WHITE BLOOD COUNT (AUTO) 6.9 K/uL (4.3-11.0)
--- NOTE | 2021-08-29 06:33 | NUR ---
RN CLOSING NOTE: PATIENT REMAINS IN ROOM IN NO SIGNS OF RESPIRATORY DISTRESS, PATIENT STILL ON ROOM AIR ;TOLERATING WELL SATURATING @ >95% SP02. SAFETY MEASURES IMPLEMENTED, BED IN LOWEST POSITION, LOCKED, SIDE RAILS UP, CALL LIGHT WITHIN REACH. ALL NEEDS AND ORDERS ADDRESSED DURING THE SHIFT. IV ACCESS MAINTAINED INTACT, SECURED AND FLUSHING WELL. ALL DUE MEDS GIVEN ORDERED & SCHEDULED ; PATIENT TOLERATED WELL. STILL WITH ONGOING AMIO DRIP @0.5MG/MIN, INFSUING PER PROTOCOL. PATIENT KEPT CLEAN AND COMFORTABLE WITHIN THE SHIFT. PATIENT ENDORSED TO INCOMING SHIFT RN WITH STABLE VITAL SIGN AND FOR CONTINUITY OF CARE.
[2021-08-29 06:54] LABS: CALCIUM, SERUM 8.4 mg/dL (8.5-10.1); CARBON DIOXIDE 28 mmol/L (21-32); CHLORIDE 100 mmol/L (98-107); CREATININE 0.7 mg/dL (0.6-1.3); GLUCOSE 98 mg/dL (74-106); MAGNESIUM 1.8 mg/dL (1.8-2.4); PHOSPHORUS 3.9 mg/dL (2.5-4.9); POTASSIUM 3.5 mmol/L (3.5-5.1); SODIUM SERUM 136 mmol/L (136-145); UREA NITROGEN, BLOOD 12 mg/dL (7-18)
--- NOTE | 2021-08-29 07:45 | NUR ---
RN NOTE PT TRANSFERRED TO ICU FOR CARDIOVERSION PER MD CAMPOS. PT STABLE UPON TRANSFER STILL IN SINUS TACH 120'2 AFIB ON MONITOR. WILL UPDATE PRN.
--- NOTE | 2021-08-29 08:25 | NUR ---
ICU/RN PT TRANSFERRED FROM [facility] FOR MARIKA AND CARDIOVERSION.PT IS AWAKE ALERT,HR-120-130 BPM [id number].V/S STABLE,NO PAIN REPORTED AT THIS TIME ,AFEBRILE.LEFT UPPER ARM MIDLINE.PT IS ON AMIODARONE DRIP.RIGHT HAND WARM AND SWOLLEN. AWARE.
[2021-08-29] MEDS ORDERED: ANESTHESIA TRAY IN PYXIS 1 EA TRAY MC ONE (08:30)
--- NOTE | 2021-08-29 09:00 | NUR ---
ICU/RN PT IS POST MARIKA AND CARDIOVERSION .STILL SEDATED.ANESTHESIOLOGIST AT BED SIDE. CONTINUE MONITORING.
[2021-08-29] MEDS ORDERED: METOPROLOL TARTRATE 25 MG TABLET PO SCH (10:00)
[2021-08-29] MEDS: PANTOPRAZOLE 40 MG TABLET.DR PO SCH (10:16)
[2021-08-29] MEDS: CARBAMAZEPINE 200 MG TABLET PO SCH ×2 (10:16→14:09)
[2021-08-29] MEDS: APIXABAN 5 MG TABLET PO SCH (10:17)
--- NOTE | 2021-08-29 10:45 | NUR ---
ICU/RN PT TRANSFERRED BACK TO TELE UNIT.AWAKE,ALERT.V/S STABLE ,AFEBRILE.NO PAIN REPORTED AT THIS TIME.HR-59-63 BPM SINUS..ALL AM MEDS PO GIVEN ORDERED.
[2021-08-29] MEDS ORDERED: PANT40TA49 PO (13:02)
[2021-08-29] MEDS ORDERED: APIX5TAB PO (13:02)
--- NOTE | 2021-08-29 16:15 | NUR ---
RECREATION THERAPY TEACHER NOTE PT STABLE FOR DISCHARGE PER MED ORDER. PT IN BED, A/O X3-4L. RESPIRATION IS EVEN AND UNLABORED, NO SOB NOTED AT THIS TIME PATIENT ON ROOM AIR. PATIENT IS AMBULATORY TO BEDSIDE COMMODE. RAC AND YUNI ML REMOVED FULLY INTACT. PT ON TELE WITH LAST READING SINUS [place] IN 60'S.PT TO BE TRANSFERRED TO [facility] PER CASE MG[facility]. PT DAUGHTER NOTIFIED BY CASE MG[facility]. PT TRANSPORTED VIA AMBULANCE TO SNF FOR SANCHEZ. PT STABLE AT TIME OF DISCHARGE.
== END 2021-08-29 17:00 | DRG 918 ==
LOC: ER 22:02 → TELE1 08-25 02:29 → TELE-TD 08-27 09:58 → ICU 08-29 07:54 → TELE1 08-29 10:41 → TELE-TD 08-29 11:05
PROVIDERS: ADMIT Nurse Practitioner Acute Care; ATTEND Student in an Organized Health Care Education/Training Program
PROC: 5A2204Z Restoration of Cardiac Rhythm, Single (ICD-10-PCS; principal; 2021-08-29)
DX: T42.1X1A Poisoning by iminostilbenes, accidental (unintentional), initial encounter (principal); F03.91 Unspecified dementia, unspecified severity, with behavioral disturbance; I48.92 Unspecified atrial flutter; I10 Essential (primary) hypertension; Y92.009 Unspecified place in unspecified non-institutional (private) residence as the place of occurrence of the external cause; Z20.822 Contact with and (suspected) exposure to COVID-19; G40.909 Epilepsy, unspecified, not intractable, without status epilepticus; R62.7 Adult failure to thrive; E78.00 Pure hypercholesterolemia, unspecified; E78.5 Hyperlipidemia, unspecified; Z79.899 Other long term (current) drug therapy; Z85.22 Personal history of malignant neoplasm of nasal cavities, middle ear, and accessory sinuses; M19.90 Unspecified osteoarthritis, unspecified site; E87.6 Hypokalemia; F32.A Depression, unspecified; I48.91 Unspecified atrial fibrillation; E07.9 Disorder of thyroid, unspecified
CPT/HCPCS: 36410; 36415; 80048-TC; 80076-TC; 80156-TC; 83605-TC; 83735-TC; 84100-TC; 84443-TC; 84484-TC; 85025-TC; 87081-TC; 93307-TC; 93312-TC; 97116-TC; 97530-TC; C9803; G0378; G0480; J0282; J2060; J2270; J3490; J7030; J7060

== ENCOUNTER 2021-12-20 09:37 | Inpatient (IN) | payer MEDICARE ==
[~2021-12-20] VITALS: Ht 182.9 cm; Wt 69.5 kg
[~2021-12-20 09:37] MED LIST changes: -ALPR1TAB7 PO; +APIX5TAB PO; -HYDR-3980 PO; -LOSA100T31 PO; +METO25TA20 PO; +PANT40TA49 PO; -TRAZ-252 PO; -ZOLP10TA2 PO
--- NOTE | 2021-12-20 09:45 | NUR ---
DR TANG AT BEDSIDE
--- NOTE | 2021-12-20 09:57 | NUR ---
COVID SWAB DONE AND SENT TO LAB
[2021-12-20] MEDS ORDERED: IV NS 0.9% 1,000 ML BAG IV ONE (10:00)
--- NOTE | 2021-12-20 10:00 | NUR ---
RETAIL WIRELESS SALES CONSULTANT AT BEDSIDE FOR XRAY
--- NOTE | 2021-12-20 10:11 | NUR ---
MOVE SHEET SUBMITTED.
[2021-12-20 10:12] LABS: BASOPHILS % (AUTO) 0.3 % (0.0-2.0); HEMATOCRIT 37 % (39-51); HEMOGLOBIN 12.4 g/dL (13.5-17.5); LYMPHOCYTES # (AUTO) 0.5 K/uL (0.8-4.8); LYMPHOCYTES % (AUTO) 5.4 % (20.0-44.0); MEAN CORPUSCULAR HGB CONC 34 g/dl (31.0-36.0); MEAN CORPUSCULAR VOLUME 91 fL (80-96); MONOCYTES # (AUTO) 0.6 K/uL (0.1-1.30); MONOCYTES % (AUTO) 6.4 % (2.0-12.0); NEUTROPHILS # (AUTO) 8.1 K/uL (1.8-8.9); NEUTROPHILS % (AUTO) 87.9 % (43.0-81.0); PLATELET COUNT (AUTO) 256 K/uL (150-450); RED BLOOD CELL COUNT(AUTO) 4.01 MIL/uL (4.5-6.0); WHITE BLOOD COUNT (AUTO) 9.2 K/uL (4.3-11.0)
--- NOTE | 2021-12-20 10:21 | NUR ---
URINE COLLECTED AND SENT TO LAB
[2021-12-20 10:40] LABS: CALCIUM, SERUM 8.5 mg/dL (8.5-10.1); CARBON DIOXIDE 32 mmol/L (21-32); CHLORIDE 103 mmol/L (98-107); CREATININE 0.8 mg/dL (0.6-1.3); GLUCOSE 105 mg/dL (74-106); POTASSIUM 3.6 mmol/L (3.5-5.1); SODIUM SERUM 140 mmol/L (136-145); UREA NITROGEN, BLOOD 14 mg/dL (7-18)
[2021-12-20 10:41] LABS: SERUM AMMONIA 28 umol/L (11-32)
[2021-12-20 10:55] LABS: ALANINE AMINOTRANSFERASE 28 U/L (12-78); ALBUMIN 3.4 g/dL (3.4-5.0); ALCOHOL, BLOOD < 3 mg/dL (0-0); ALKALINE PHOSPHATASE 74 U/L (46-116); ASPARTATE AMINOTRANSFERASE 37 U/L (15-37); BILIRUBIN,DIRECT 0.1 mg/dL (0.0-0.2); BILIRUBIN,TOTAL 0.4 mg/dL (0.2-1.0); TOTAL PROTEIN, SERUM 6.6 g/dL (6.4-8.2)
[2021-12-20 11:00] LABS: ACETAMINOPHEN 0 ug/ml (10-30)
[2021-12-20 11:00] LABS: BILIRUBIN,URINE NEGATIVE (NEGATIVE); COLOR,URINE YELLOW (YELLOW); LEUKOCYTE ESTERASE ,URINE NEGATIVE (NEGATIVE); NITRITE, URINE NEGATIVE (NEGATIVE); PH,URINE 6.5 (5.0-8.0); PROTEIN,URINE TRACE mg/dl (NEGATIVE); UGLUCOSE NEGATIVE (NEGATIVE); UROBILINOGEN,URINE 0.2 EU/dL (0.2)
--- NOTE | 2021-12-20 11:15 | NUR ---
PANEL ON-CALL PAGED
[2021-12-20 11:25] LABS: BACTERIA,URINE 1+ /HPF (None Seen); RBC,URINE 0-2 /HPF (0-2)
--- NOTE | 2021-12-20 11:30 | NUR ---
SPOKE TO DON OF POISON CONTROL WITH CASE#[id number] RE CARBAMAZEPINE LEVEL OF 16.5. RECOMMENDATIONS: PUT PATIENT IN MOLD FINISHER, DO EKG, MAKE SURE PATIENT RETURNS BACK TO BASELINE MENTAL STATUS, AND CHECK CARBAMAZEPINE LEVEL EVERY 4-6HRS TO MAKE SURE LEVEL IS GOING DOWN, ACCEPTABLE LEVEL IS 6-12. DR TANG AWARE
--- NOTE | 2021-12-20 12:22 | NUR ---
DR. STOLL CARDIOLOGY PAGED.
--- NOTE | 2021-12-20 12:26 | NUR ---
room 313-1
--- NOTE | 2021-12-20 13:13 | NUR ---
TRANSFERRED TO BED 313 IN STABLE CONDITION
[2021-12-20 13:25] VITALS: BP 156/105
[2021-12-20] MEDS ORDERED: Z GUARD REMEDY 4 OZ OINT TP PRN (13:30)
[2021-12-20] MEDS ORDERED: ONDANSETRON HCL/PF 4 MG/2 ML VIAL IVP PRN (13:30)
[2021-12-20] MEDS ORDERED: ENOXAPARIN SODIUM 40 MG/0.4 ML DISP.SYRIN SQ SCH (14:00)
[2021-12-20] MEDS: IV NS 0.9% 1,000 ML IV PRN (14:01)
[2021-12-20] MEDS ORDERED: METOPROLOL TARTRATE 25 MG TABLET PO ONE (14:30)
--- NOTE | 2021-12-20 14:34 | NUR ---
RN NOTES PT NOTED WITH HIGH BP OF 156/105 MMHG, HR [address] ESCOBAR MADE AWARE WITH ORDER TO GIVE METOPROLOL 25MG TAB X1 DOSE AND WAS GIVEN. WILL CONTINUE TO MONITOR .
[2021-12-20] MEDS: CEFTRIAXONE 1 G in IV D5W 50 ML IV SCH (14:53)
--- NOTE | 2021-12-20 15:00 | NUR ---
DIAL PAINTERPROGRESSIVE CARE NURSE NOTES PT ADMITTED TO UNIT [facility]IA [facility] AT 1315 WITH DIAGNOSIS OF TOXIC METABOLIC ENCEPHALOPATHY. A/O X3. ABLE TO MAKE NEEDS KNOWN WITH PERIODS OF FORGETFULNESS NOTED. PT ORIENTED TO STAFF AND ROOM. V/S TAKEN AND RECORDED. PT ON ROOM AIR, TOLERATING WELL, BREATHING EVEN AND UNLABORED, NO ACUTE RESPIRATORY DISTRESS NOTED. PHOTOS OF SKIN ISSUES TAKEN. IV ACCESS ON LEFT HAND #18G INTACT AND PATENT, IVF OF NS @ 75ML/HR STARTED PER MD ORDER. LUNGS CLEAR ON AUSCULTATION. ABDOMEN SOFT, NON-TENDER WITH POSITIVE BOWEL SOUNDS PRESENT. PT PLACED ON EXTERNAL CARDICA MONITOR WITH CURRENT READING SHOWING SINUS TACH, HR 117M NO C/O CARDIAC DISTRESS VOICED AT THIS TIME. SAFETY PRECAUTIONS IMPLEMENTED: BED IN LOWEST LOCKED POSITION, SIDE RAILS UP X3, CALL LIGHT AND TRAY TABLE WITHIN PLACED W/I EASY REACH OF PT. WILL CONTINUE TO MONITOR PT.
[2021-12-20 16:01] VITALS: BP 146/96
--- NOTE | 2021-12-20 16:04 | NUR ---
RN NOTES CHECKLIST FOR MRI BRAIN WITHOUT CONTRAST OBTAINED AND SIGNED BY PATIENT. CALLED AND LEFT MESSAGE TO MRI DEPT X 2 AND LEFT MESSAGE.
--- NOTE | 2021-12-20 16:15 | NUR ---
RN NOTES PATIENT LATEST BLOOD PRESSURE 146/96, HEART RATE 115-120 DESPITE METOPROLOL 25 MG PO X 1 DOSE. TELEMONITOR SINUS T[address]IA. DR. ESCOBAR MADE AWARE AND ACKNOWLEDGED.
--- NOTE | 2021-12-20 16:18 | NUR ---
RN NOTES LATEST TROPONIN [address] ESCOBAR MADE AWARE AND ACKNOWLEDGED. NO NEW ORDERS MADE AT THIS TIME.
[2021-12-20] MEDS: METOPROLOL TARTRATE 25 MG TABLET PO SCH (18:22)
--- NOTE | 2021-12-20 18:28 | NUR ---
RN NOTES PER PT'S , PT GOT COVID VACCINATED WITH MODERNA X2 DOSES LAST YEAR, 2020.
[2021-12-20] MEDS ORDERED: APIXABAN 5 MG TABLET PO SCH (18:30)
--- NOTE | 2021-12-20 18:38 | NUR ---
DIE STORAGE CLERK CLOSING NOTES PT IN BED RESTING AT MODERATE HIGH BACKREST POSITION. A/O X3. ABLE TO MAKE NEEDS KNOWN WITH PERIODS OF FORGETFULNESS NOTED. ON ROOM AIR, TOLERATING WELL, BREATHING EVEN AND UNLABORED, NO SOB NOTED. IV ACCESS ON LEFT HAND #18G INTACT WITH IVF OF NS @ 75ML/HR INFUSING WELL, NO S/SX OF INFILTRATION AT SITE NOTED. ON EXTERNAL FUNERAL DIRECTOR SHOWING SINUS TACH, HR 118 AT THIS TIME, NO C/O CARDIAC DISTRESS VOICED. BRONSON IN PLACE AND ACTIVELY DRAINING CLEAR YELLOW URINE OUTPUT VIA GRAVITY, BRONSON CARE DONE. SAFETY PRECAUTIONS MAINTAINED: BED IN LOWEST LOCKED POSITION, SIDE RAILS UP X3, BED ALARM ON, CALL LIGHT AND TRAY TABLE WITHIN EASY REACH OF PT. WILL ENDORSE SANCHEZ TO SENIOR BUSINESS DEVELOPMENT MANAGER NURSE.
--- NOTE | 2021-12-20 19:30 | NUR ---
HOUSEKEEPING DIRECTOR OPENING NOTE RECEIVED PT AWAKE IN BED. A/O X2-3 AND FORGETFUL. ABLE TO MAKE NEEDS KNOWN. PT STABLE ON ROOM AIR. NO SOB OR S/S OF RESPIRATORY DISTRESS. BREATHING EVEN AND UNLABORED. ON EXTERNAL SERVICE STATION OPERATOR READING ST 114 BPM. IV ACCESS L HAND 18 GAUGE RUNNING NS @ 75 ML/HR, INTACT AND PATENT. WITH BRONSON CATHETER DRAINING CLOUDY TEA COLORED URINE BY GRAVITY. SAFETY PRECAUTIONS IN PLACE. BED IN LOWEST LOCKED POSITION, HOB ELEVATED, SIDE RAILS UP X3 AND PADDED, AND CALL LIGHT AND TABLE WITHIN REACH. ALL NEEDS MET AT THIS TIME.
[2021-12-20 20:08] VITALS: BP 139/97
[2021-12-20] MEDS: ATORVASTATIN 40 MG TABLET PO SCH (22:00)
[2021-12-20] MEDS: HYDROCODONE/APAP 10/325MG TABLET PO PRN (23:33)
--- NOTE | 2021-12-20 23:34 | NUR ---
RN NOTE PT COMPLAINED OF HEADACHE 10/26. ADMINISTERED NORCO 10-325 MG FOR PAIN ORDERED. MADE COMFORTABLE IN BED. ALL NEEDS MET AT THIS TIME.
[2021-12-21] VITALS: BP 150/11
[2021-12-21 04:00] VITALS: BP 151/110
[2021-12-21] MEDS: HYDROCODONE/APAP 10/325MG TABLET PO PRN ×3 (04:22→16:08)
--- NOTE | 2021-12-21 04:23 | NUR ---
RN NOTE PT COMPLAINED OF HEADACHE 10/26. ADMINISTERED NORCO 10-325 MG FOR PAIN ORDERED. MADE COMFORTABLE IN BED. ALL NEEDS MET AT THIS TIME.
--- NOTE | 2021-12-21 05:10 | NUR ---
RN NOTE PT STILL COMPLAINING OF HEADACHE. BP IS 170/131 HR 114. LEFT MESSAGE FOR DR REINOSO. AWAITING ORDERS AT THIS TIME.
--- NOTE | 2021-12-21 05:31 | NUR ---
RN NOTE PT NOTED WITH ONE EPISODE OF EMESIS. ADMINISTERED ZOFRAN 4 MG FOR NAUSEA ORDERED. MADE COMFORTABLE IN BED. PROVIDED EMESIS BAG. ALL NEEDS MET AT THIS TIME.
[2021-12-21] MEDS: IV NS 0.9% 1,000 ML IV PRN (05:52)
[2021-12-21] MEDS: METOPROLOL TARTRATE 25 MG TABLET PO SCH ×5 (06:55→23:21)
[2021-12-21] MEDS: PANTOPRAZOLE 40 MG TABLET.DR PO SCH (06:55)
--- NOTE | 2021-12-21 06:55 | NUR ---
RN NOTE HAVE NOT RECEIVED CALL BACK FROM DR REINOSO. CHARGE NURSE RIVER INSTRUCTED ME TO ADMINISTER METOPROLOL 25 MG EARLY SINCE BP IS STILL ELEVATED. CALLED PHARMACY TO INFORM THAT I AM ADMINISTERING MED EARLY. SPOKE TO BEHZAD WHO STATED IT WAS OKAY.
[2021-12-21 07:00] LABS: BASOPHILS % (AUTO) 0.3 % (0.0-2.0); EOSINOPHILS % (AUTO) 0.1 % (0.0-6.0); HEMATOCRIT 42 % (39-51); HEMOGLOBIN 14.4 g/dL (13.5-17.5); LYMPHOCYTES # (AUTO) 0.6 K/uL (0.8-4.8); LYMPHOCYTES % (AUTO) 8.4 % (20.0-44.0); MEAN CORPUSCULAR HGB CONC 34 g/dl (31.0-36.0); MEAN CORPUSCULAR VOLUME 92 fL (80-96); MONOCYTES # (AUTO) 0.5 K/uL (0.1-1.30); NEUTROPHILS # (AUTO) 6.6 K/uL (1.8-8.9); NEUTROPHILS % (AUTO) 85.2 % (43.0-81.0); PLATELET COUNT (AUTO) 277 K/uL (150-450); RED BLOOD CELL COUNT(AUTO) 4.62 MIL/uL (4.5-6.0); WHITE BLOOD COUNT (AUTO) 7.7 K/uL (4.3-11.0)
--- NOTE | 2021-12-21 07:03 | NUR ---
BAG WORKER CLOSING NOTE PT AWAKE IN BED. A/O X2-3 AND FORGETFUL. ABLE TO MAKE NEEDS KNOWN. PT STABLE ON ROOM AIR. NO SOB OR S/S OF RESPIRATORY DISTRESS. BREATHING EVEN AND UNLABORED. ON EXTERNAL LOUNGE CAR ATTENDANT READING ST 117 BPM. IV ACCESS RFA 22 GAUGE RUNNING NS @ 75 ML/HR, INTACT AND PATENT. WITH BRONSON CATHETER DRAINING CLOUDY TEA COLORED URINE BY GRAVITY, DRAINED 1500 CC THIS SHIFT. ALL DUE MEDS GIVEN ORDERED. SAFETY PRECAUTIONS IN PLACE AT ALL TIMES. BED IN LOWEST LOCKED POSITION, HOB ELEVATED, SIDE RAILS UP X3 AND PADDED, AND CALL LIGHT AND TABLE WITHIN REACH. ALL NEEDS MET AT THIS TIME AND WILL ENDORSE TO ONCOMING NURSE FOR SANCHEZ.
[2021-12-21 07:08] LABS: CALCIUM, SERUM 8.5 mg/dL (8.5-10.1); CREATININE 0.7 mg/dL (0.6-1.3); PHOSPHORUS 3.1 mg/dL (2.5-4.9); POTASSIUM 3.3 mmol/L (3.5-5.1)
--- NOTE | 2021-12-21 07:45 | NUR ---
PRE K TEACHER OPENING NOTE RECEIVED PT AWAKE IN BED. PATIENT IS A/O X2-3 AND FORGETFUL. REORIENT THE PATIENT .ABLE TO MAKE NEEDS KNOWN. PT STABLE ON ROOM AIR. NO SOB OR S/S OF RESPIRATORY DISTRESS. BREATHING EVEN AND UNLABORED. PER PREVIUOS SHIFT BP WAS HIGH. MED GIVEN . ON EXTERNAL TAR BOILER READING ST 117 BPM WITH ATRIAL FLATTER PER DR STOLL . DR STOLL VISITED THE PATIENT. DR STOLL AWARE OF THE PATIENT HIGH BLOOD PRESSURE. DR STOLL STATED WILL INCREASE THE BLODD PRESSURE MEDICATIONS.IV ACCESS RIGHT FA GAUGE 22 RUNNING NS @ 75 ML/HR, INTACT AND PATENT. WITH BRONSON CATHETER DRAINING URINE BY GRAVITY. SAFETY PRECAUTIONS IN PLACE. BED IN LOWEST LOCKED POSITION, HOB ELEVATED, SIDE RAILS UP X3 AND PADDED, AND CALL LIGHT AND TABLE WITHIN REACH. WILL CONTINUE TO MONITOR.
[2021-12-21 08:00] VITALS: BP 153/113
--- NOTE | 2021-12-21 09:30 | NUR ---
RN NOTES PATIENT SPOKE WITH . THE PATIENT'S WAS INSISTING PATIENT HAS TO COME HOME TO TAKE HIS HOME MEDICATIONS. WHEN THEY NOTED THE PATIENT WILL NOT BE DISCHARGE TODAY, THEY BOTH GOT MAD. THE PATIENT WANTED TO LEAVE AMA. INFORMED LUZ AND SHE STATED THE PATIENT HAS UTI AND POSSIBLE MASS IN THE HEAD, HE CAN NOT LEAVE. ASKED THE TO GIVE HOME MEDICATION LIST, THE MEDICATIONS WERE , AMBIEN 1MG, XANAX 1MG AND TEGRETOL NOT SURE OF THE DOSAGE BUT 4 TIMES IN A DAY. INFORMED SATURATOR TENDER LUZ, AND NO NEW ORDER WAS GIVEN.
--- NOTE | 2021-12-21 09:42 | NUR ---
RN NOTES HELD METOPROLOL 50 MG PER FLEET TECHNICIAN LUZ. PATIENT HAS ORTHOSTATIC HYPOTENSION. BP LYING DONE IS 139/104, P=119. SITTING WL=618/81, P=120, STANDING BP= 105/61, P= 123
[2021-12-21] MEDS: ACETAMINOPHEN 325 MG TABLET PO PRN (09:53)
[2021-12-21] MEDS ORDERED: IV NS 0.9% 500 ML IV ONE (10:00)
[2021-12-21] MEDS ORDERED: POTASSIUM CHLORIDE 20 MEQ TAB.PRT.SR PO ONE (10:00)
[2021-12-21] MEDS: CEFTRIAXONE 1 G in IV D5W 50 ML IV SCH (13:12)
[2021-12-21 16:00] VITALS: BP 136/101
--- NOTE | 2021-12-21 18:56 | NUR ---
CARDIAC CARE UNIT NURSE CLOSING NOTE PT AWAKE IN BED. PATIENT IS A/O X2-3 AND FORGETFUL. REORIENT THE PATIENT .ABLE TO MAKE NEEDS KNOWN. PT STABLE ON ROOM AIR. NO SOB OR S/S OF RESPIRATORY DISTRESS. BREATHING EVEN AND UNLABORED . ON EXTERNAL PROCESS CONTROL TECHNICIAN READING ST 123 BPM WITH ATRIAL FLATTER PER DR STOLL . DR STOLL VISITED THE PATIENTIN THE MORNING. DR STOLL AWARE OF THE PATIENT HIGH BLOOD PRESSURE. MOTOPROLOL DOSE INCREASE FROM 25 MG TO [address] STOLL.IV ACCESS RIGHT FA GAUGE 22 RUNNING NS @ 75 ML/HR, INTACT AND PATENT. PATIENT ALSO HAD 500 ML ONE TIME ORDER OF NS WIDE OPEN.BRONSON CATHETER DRAINING URINE BY GRAVITY DARK YELLOW TEA COLOR URINE. ALL SAFETY PRECAUTIONS IN PLACE. PATIENT RISK FOR FALL, CLOSE MONITORING NEEDED. RISK FOR SEIZURE, . SAFETY FOR SEIZURE IMPLEMENTED.BED IN LOWEST LOCKED POSITION, HOB ELEVATED, SIDE RAILS UP X3 AND PADDED, AND CALL LIGHT AND TABLE WITHIN REACH. BED ALARM ON . WILL ENDORSE FOR SANCHEZ.
--- NOTE | 2021-12-21 19:30 | NUR ---
COAL MILL OPERATOR OPENING NOTE PT AWAKE IN BED. A/O X2-3 AND FORGETFUL. ABLE TO MAKE NEEDS KNOWN. PT STABLE ON ROOM AIR. NO SOB OR S/S OF RESPIRATORY DISTRESS. BREATHING EVEN AND UNLABORED. ON EXTERNAL NEW CLIENT BANKING SERVICES CLERK READING ST 122 BPM. IV ACCESS RFA 22 GAUGE RUNNING NS @ 75 ML/HR, INTACT AND PATENT. WITH BRONSON CATHETER DRAINING CLOUDY TEA COLORED URINE BY GRAVITY. SAFETY PRECAUTIONS IN PLACE. BED IN LOWEST LOCKED POSITION, HOB ELEVATED, SIDE RAILS UP X3 AND PADDED, AND CALL LIGHT AND TABLE WITHIN REACH. ALL NEEDS MET AT THIS TIME.
[2021-12-21 20:00] VITALS: BP 143/107
--- NOTE | 2021-12-21 20:42 | NUR ---
RN NOTE PT LEFT FOR MRI AT THIS TIME VIA [facility]. ESCORTED BY CHHAYA GANN AND BE FROM RADIOLOGY.
--- NOTE | 2021-12-21 21:39 | NUR ---
RN NOTE PT RETURNED FROM MRI TO THE UNIT AT THIS TIME VIA GURNEY. MADE COMFORTABLE IN BED. ALL NEEDS MET AT THIS TIME.
[2021-12-21] MEDS: ATORVASTATIN 40 MG TABLET PO SCH (22:36)
--- NOTE | 2021-12-21 22:36 | NUR ---
RN NOTE ONLY PULLED OUT ATORVASTATIN 40 MG FROM OMNICELL. HAD TO GO PULL ANOTHER 40 MG FROM OMNICELL TO ADMINISTER FULL DOSE AT THIS TIME. CHARGE NURSE RIVER KAHN.
[2021-12-22] VITALS (9 sets, daily range): BP systolic 125–210; BP diastolic 89–131
--- NOTE | 2021-12-22 01:00 | NUR ---
RN NOTE PT NOTED PULLING AT BRONSON CATHETER. PT STATED "I THOUGHT I WAS SUPPOSED TO TAKE IT OUT". PT HAS EPISODES OF FORGETFULNESS. RE-EDUCATED PT ON IMPORTANCE OF NOT PULLING ON THE BRONSON CATHETER. PT VERBALIZED UNDERSTANDING. NOTED WITH HEMATURIA IN COLLECTION POUCH. BRONSON CHECKED FOR PROPER POSITIONING AND TUBING FLUSHED. CHARGE NURSE RIVER AWARE AND WILL CONTINUE TO MONITOR.
--- NOTE | 2021-12-22 02:56 | NUR ---
RN NOTE PT KEEPS ACCIDENTALLY PULLING ON BRONSON CATHETER. TRIED REDIRECTING AND EDUCATING PT BUT HE IS VERY FORGETFUL. CONTINUES TO PULL AT BRONSON. INFORMED FLORINDA AGUAYO WITH NEW ORDER FOR BILATERAL WRIST RESTRAINTS. NEW ORDER NOTED AND CARRIED OUT.
[2021-12-22] MEDS: HYDROCODONE/APAP 10/325MG TABLET PO PRN ×3 (03:20→17:50)
--- NOTE | 2021-12-22 03:21 | NUR ---
RN NOTE PT COMPLAINED OF HEADACHE 10/26. ADMINISTERED NORCO 10-325 MG FOR PAIN ORDERED. MADE COMFORTABLE IN BED. ALL NEEDS MET AT THIS TIME.
[2021-12-22] MEDS: IV NS 0.9% 1,000 ML IV PRN (05:07)
[2021-12-22] MEDS: ACETAMINOPHEN 325 MG TABLET PO PRN (05:07)
[2021-12-22] MEDS: METOPROLOL TARTRATE 25 MG TABLET PO SCH ×3 (05:15→17:51)
--- NOTE | 2021-12-22 05:30 | NUR ---
RN NOTE PT NOTED ANXIOUS, TACHYCARDIC, AND AGITATED. REMOVED RESTRAINTS BUT PT STILL HAVING TROUBLE CALMING SELF DOWN. INFORMED ENVIRONMENTAL STUDIES FACULTY MEMBER OLIVIER WITH NO NEW ORDER. WILL SIT IN ROOM WITH PATIENT TO MONITOR.
[2021-12-22 06:31] LABS: BASOPHILS # (AUTO) 0.1 K/uL (0.0-0.2); BASOPHILS % (AUTO) 0.3 % (0.0-2.0); EOSINOPHILS % (AUTO) 0.2 % (0.0-6.0); HEMATOCRIT 44 % (39-51); HEMOGLOBIN 14.8 g/dL (13.5-17.5); LYMPHOCYTES # (AUTO) 1.5 K/uL (0.8-4.8); LYMPHOCYTES % (AUTO) 9.6 % (20.0-44.0); MEAN CORPUSCULAR HGB CONC 33 g/dl (31.0-36.0); MEAN CORPUSCULAR VOLUME 92 fL (80-96); MONOCYTES # (AUTO) 1.2 K/uL (0.1-1.30); MONOCYTES % (AUTO) 7.4 % (2.0-12.0); NEUTROPHILS # (AUTO) 13.1 K/uL (1.8-8.9); NEUTROPHILS % (AUTO) 82.5 % (43.0-81.0); PLATELET COUNT (AUTO) 354 K/uL (150-450); RED BLOOD CELL COUNT(AUTO) 4.83 MIL/uL (4.5-6.0); WHITE BLOOD COUNT (AUTO) 15.9 K/uL (4.3-11.0)
--- NOTE | 2021-12-22 06:47 | NUR ---
LOGISTICS MANAGEMENT SPECIALIST CLOSING NOTE PT AWAKE IN BED. A/O X2-3 AND FORGETFUL AND ANXIOUS. ABLE TO MAKE NEEDS KNOWN. PT STABLE ON ROOM AIR. NO SOB OR S/S OF RESPIRATORY DISTRESS. BREATHING EVEN AND UNLABORED. ON EXTERNAL CERTIFIED NURSES' AIDE READING ST 122 BPM. IV ACCESS RFA 22 GAUGE RUNNING NS @ 75 ML/HR, INTACT AND PATENT. WITH BRONSON CATHETER DRAINING RED COLORED URINE BY GRAVITY, DRAINED 2000 ML THIS SHIFT. SAFETY PRECAUTIONS IN PLACE AT ALL TIMES. BED IN LOWEST LOCKED POSITION, HOB ELEVATED, SIDE RAILS UP X3 AND PADDED, AND CALL LIGHT AND TABLE WITHIN REACH. ALL NEEDS MET AT THIS TIME AND WILL ENDORSE TO ONCOMING NURSE FOR SANCHEZ.
[2021-12-22 06:50] LABS: CALCIUM, SERUM 9.5 mg/dL (8.5-10.1); PHOSPHORUS 1.9 mg/dL (2.5-4.9); POTASSIUM 4.7 mmol/L (3.5-5.1)
--- NOTE | 2021-12-22 07:16 | NUR ---
PLAYER SERVICES REPRESENTATIVE OPENING NOTE PATIENT IN BED, ALERT/ORIENTED X 1. NOTED PATIENT TO BE VERY ANXIOUS AND FORGETFUL. PATIENT REQUIRES TIME TO GET THE RIGHT WORDS OR SOMETIMES UNABLE TO GET THE RIGHT WORDS, INCLUDING SIMPLE ONES. PT ABLE TO MAKE NEEDS KNOWN AND DENIES PAIN AT THIS TIME. PATIENT STABLE ON RA, NO S/S OF DISTRESS OR SOB NOTED, BREATHING EVEN AND UNLABORED. WITH DRESSING ON THE LEFT ELBOW, DRY AND INTACT. WITH IV ACCESS ON THE RIGHT FOREARM G 22 WITH IVF OG NS RUNNING AT 75 ML/HR. WITH TELE MONITOR READING AFLUTTER AT 128. WITH BRONSON CATHETER TO URINE BAG WITH BLOOD TINGED URINE. SOME BLOOD CLOT NOTED. APPARENTLY, PATIENT WAS TRYING TO GET UP OR WOULD TRY TO REMOVE CATHETER LAST NIGHT THUS THE TRAUMA. SAFETY MEASURES IN PLACE: CALL LIGHT WITHIN REACH, SIDE RAILS UP X 2, BED LOCKED IN LOWEST POSITION. WILL CONTINUE TO MONITOR PATIENT
[2021-12-22] MEDS: DILTIAZEM HCL CD 240 MG PO SCH (08:58)
[2021-12-22] MEDS: PANTOPRAZOLE 40 MG TABLET.DR PO SCH (08:58)
--- NOTE | 2021-12-22 09:00 | NUR ---
CONSTRUCTION PLUMBER NOTE SEEN BY DR. STOLL WITH ORDER FOR CARDIZEM. BP MEDICATION GIVEN ORDERED. PATIENT ENCOURAGED TO RELAX BY VERBALIZING AND DISTRACTION. PROVIDED WITH CALM AND QUIET ENVIRONMENT. STILL ANXIOUS. COMFORT MEASURES PROVIDED. IN STABLE CONDITION, NOT IN DISTRESS.
--- NOTE | 2021-12-22 09:00 | NUR ---
QUALITY LAB ASSOC NOTE PATIENT ALERT AND ORIENTED X 1-2. VERY FORGETFUL. PATIENT IS RESTLESS AND TRIES TO GET OUT OF BED. PROVIDED WITH CALM AND QUIET ENVIRONMENT. BP MEDICATION GIVEN AND WILL RECHECK BP.
[2021-12-22] MEDS ORDERED: K PHOS NEUTRAL 250 MG TABLET PO ONE (10:00)
[2021-12-22] MEDS ORDERED: ALPRAZOLAM 1 MG TABLET PO ONE (10:30)
--- NOTE | 2021-12-22 10:45 | NUR ---
ACCOUNTANT TAX NOTE PAIENT STILL AGGITATED/ ANXIOUS AND STILL WITH ELEVATED BP. DR. ESCOBAR NOTIFIED AND ORDERED XANAX 1 TIME DOSE. MEDICATION GIVEN ORDERED. HEALTH TEACHING DONE. PROVIDED WITH CALM AND QUIET ENVIONMENT. WILL CONTINUE TO MONITOR PATIENT.
--- NOTE | 2021-12-22 11:49 | NUR ---
FILE CLERK NOTE LATEST BP IS 155/119. PATIENT LESS RESTLESS NOW AND SITTING ON A CHAIR. METOPROLOL GIVEN ORDERED. KEPT PATIENT OFF RESTRAINT BECAUSE PER MECHANICAL ADJUSTER NURSE, PATIENT BECOMES MORE AGITATED WITH RESTRAINTS ON.
--- NOTE | 2021-12-22 13:00 | NUR ---
HEM MARKER NOTE PATIENT MORE CALM NOW. BP AT 125/89 WITH HR OF 122. NOTED PATIENT CLOSING EYES BUT NOT REALLY SLEEPING. COMFORT MEASURES PROVIDED.
[2021-12-22] MEDS: CEFTRIAXONE 1 G in IV D5W 50 ML IV SCH (13:43)
--- NOTE | 2021-12-22 18:43 | NUR ---
LEADERSHIP PROGRAM ASSOCIATE NOTE WITH CLEAR URINE OUTPUT NOW. PATIENT WOULD STILL SOMETIMES PLAY WITH THE CATHETER. DR. ESCOBAR NOTIFIED WITH ORDER TO REMOVE BRONSON CATHETER. BRONSON CATHETER REMOVED ORDERED. PROCEDURE TOLERATED WELL. IN STABLE CONDITION. WILL CONTINUE TO MONITOR PATIENT.
--- NOTE | 2021-12-22 19:02 | NUR ---
SUPERVISOR DRYING AND SOFTENING CLOSING NOTE PATIENT IN BED, ALERT/ORIENTED X 1. NOTED PATIENT TO BE ANXIOUS AND FORGETFUL. PATIENT REQUIRES TIME TO GET THE RIGHT WORDS OR SOMETIMES UNABLE TO GET THE RIGHT WORDS, INCLUDING SIMPLE ONES. PT ABLE TO MAKE NEEDS KNOWN AND DENIES PAIN AT THIS TIME. PATIENT STABLE ON RA, NO S/S OF DISTRESS OR SOB NOTED, BREATHING EVEN AND UNLABORED. WITH DRESSING ON THE LEFT ELBOW, DRY AND INTACT. WITH IV ACCESS ON THE RIGHT AC G 20 ON SALINE LOCK, PATENT AND INTACT. WITH TELE MONITOR READING AFLUTTER AT 120'S. REMOVED BRONSON CATHETER, NO URINE OUTPUT YET. ENDORSED TO NEXT SHIFT. SAFETY MEASURES IN PLACE: CALL LIGHT WITHIN REACH, SIDE RAILS UP X 2, BED LOCKED IN LOWEST POSITION. WILL CONTINUE TO MONITOR PATIENT
--- NOTE | 2021-12-22 19:35 | NUR ---
CELEBRITY MANAGER NOTES RECEIVED LAYING COMFORTABLY ON BED,A/O X2-3,ABLE TO STATE HIS NAME,WITH EPISODE OF CONFUSION AND FORGETFULNESS,SALINE LOCK RIGHT AC INTACT AND PATENT,WITH RIGHT AND LEFT ARM SKIN TEAR COVERED WITH DRESSING REPORTED.WITH SITTER AT BEDSIDE FOR SAFETY,WILL CONTINUE TO MONITOR STATUS.
--- NOTE | 2021-12-22 19:45 | NUR ---
VEIN PUMPER NOTES A-FLUTTER ON TELE MONITOR-125
[2021-12-22] MEDS: ATORVASTATIN 40 MG TABLET PO SCH (21:33)
--- NOTE | 2021-12-23 | NUR ---
SALES OPERATIONS CONSULTANT NOTES VITAL SIGNS OF BP-165/122.PULSE-127 ON TELE MONITOR,CHEST PAIN NOT HEADACHE,BUT PAIN ON MID LOWER ABDOMEN 8/10 ON PAIN SCALE.WILL MEDICATE.
[2021-12-23] MEDS: METOPROLOL TARTRATE 25 MG TABLET PO SCH ×4 (00:32→17:41)
[2021-12-23] MEDS: HYDROCODONE/APAP 10/325MG TABLET PO PRN ×2 (00:36→12:41)
--- NOTE | 2021-12-23 00:36 | NUR ---
CRACKER OFF NOTES MEDICATED WITH NORCO 10/325MG,1 TAB PO ORDERED
[2021-12-23 05:30] VITALS: BP 157/119
[2021-12-23] MEDS: DILTIAZEM HCL CD 240 MG PO SCH (06:05)
--- NOTE | 2021-12-23 06:30 | NUR ---
SCREW MACHINE TENDER NOTES NOTED SLIGHTLY DISTENDED BLADDER,BLADDER SCAN SHOWED MORE THAN 800ML OF URINE IN THE BLADDER,HOSPITALIST MANDY MADE AWARE,WITH ORDER TO PUT BACK THE BRONSON AND HAVE RESTRAINT,NOTED AND CARRIED OUT.
--- NOTE | 2021-12-23 07:00 | NUR ---
INTERIOR DESIGN CONSULTANT NOTES BRONSON KAZAKH 16 INSERTED,SLIGHT BLOODY DUE TO TRAUMA WHEN HE ATTEMPTED TO PULLED OUT BRONSON YESTERDAY.
[2021-12-23 07:19] LABS: BASOPHILS % (AUTO) 0.1 % (0.0-2.0); EOSINOPHILS % (AUTO) 0.1 % (0.0-6.0); HEMATOCRIT 44 % (39-51); HEMOGLOBIN 14.6 g/dL (13.5-17.5); LYMPHOCYTES # (AUTO) 0.7 K/uL (0.8-4.8); LYMPHOCYTES % (AUTO) 5.1 % (20.0-44.0); MEAN CORPUSCULAR HGB CONC 33 g/dl (31.0-36.0); MEAN CORPUSCULAR VOLUME 92 fL (80-96); MONOCYTES # (AUTO) 1.2 K/uL (0.1-1.30); MONOCYTES % (AUTO) 9.1 % (2.0-12.0); NEUTROPHILS # (AUTO) 11.7 K/uL (1.8-8.9); NEUTROPHILS % (AUTO) 85.6 % (43.0-81.0); PLATELET COUNT (AUTO) 316 K/uL (150-450); RED BLOOD CELL COUNT(AUTO) 4.79 MIL/uL (4.5-6.0); WHITE BLOOD COUNT (AUTO) 13.7 K/uL (4.3-11.0)
[2021-12-23] MEDS: PANTOPRAZOLE 40 MG TABLET.DR PO SCH (07:30)
--- NOTE | 2021-12-23 07:30 | NUR ---
RN Receiving Report PT AOx2, able to express his concerns. Patient shows no signs of distress or discomfort. Reviewed planof care, pt is passive but agrees with plan. IV shows no signs of infiltration. Will round throuout shift and provide care and assistance as needed. All safety precautions taken, call light and table within reach, bed at lowest position, will continue to monitor throughout shift.
--- NOTE | 2021-12-23 07:37 | NUR ---
CLOTHING EXAMINER NOTES CALM AND QUIET ON BED THIS TIME,SITTER AT BEDSIDE.NO DISTRESS.
[2021-12-23 08:04] LABS: CALCIUM, SERUM 9.2 mg/dL (8.5-10.1); CARBON DIOXIDE 26 mmol/L (21-32); CHLORIDE 99 mmol/L (98-107); CREATININE 1.2 mg/dL (0.6-1.3); GLUCOSE 114 mg/dL (74-106); MAGNESIUM 2.2 mg/dL (1.8-2.4); PHOSPHORUS 5.2 mg/dL (2.5-4.9); POTASSIUM 3.9 mmol/L (3.5-5.1); SODIUM SERUM 136 mmol/L (136-145); UREA NITROGEN, BLOOD 25 mg/dL (7-18)
--- NOTE | 2021-12-23 08:44 | NUR ---
WOUND CARE CONSULT: PT REFUSED TO HAVE DRESSING REMOVED FROM LEFT ELBOW AREA (SKIN TEAR NOTED IN ADMISSION PHOTO). RECOMMENDATIONS MADE FOR SKIN PROTECTION AND WOUND CARE. DISCUSSED WITH NURSING STAFF. MD IN AGREEMENT WITH PLAN OF CARE.
[2021-12-23 09:09] LABS: THYROID STIMULATING HORMONE 6.089 uIU/mL (0.358-3.74)
[2021-12-23] MEDS: DIGOXIN INJ 0.5 MG/2 ML AMPUL IV SCH ×2 (11:17→17:43)
[2021-12-23] MEDS: ACETAMINOPHEN 325 MG TABLET PO PRN (12:22)
[2021-12-23 16:00] VITALS: BP 92/59
[2021-12-23] MEDS: CARBAMAZEPINE 200 MG TABLET PO SCH (16:44)
--- NOTE | 2021-12-23 18:55 | NUR ---
RN Closing Notes Patient AO x1, remained calm throughout shift except when he pulled out IV around 1800. Re-inserted IV, Right Forearm 20g. Administered medications as prescribed including IV Fluids. Total urine output was 500ml. Patient remained safe throughout shift, no incidents to report. tried to call patient, he has no patience to be on the phone. Explained to and daughter that patient is confused and has his moments. stated she is not feeling well and has no car. All safety precautions taken throughout shift, call light and table within reach, bed at lowest position. Will endorse report to night nurse.
--- NOTE | 2021-12-23 19:30 | NUR ---
TELERN ASLEEP, EASILY AWAKENED WHEN CALLED, DENIES ANY DISCOMFORTS. CALM AND COOPERATIVE. A FLUTTER ON THE MONITOR. PRESENT IVF CONTINUED. CLOSELY MONITORED
--- NOTE | 2021-12-23 19:30 | NUR ---
JASON SEEN AMBULATING AROUND HALLWAYS, BEHAVIOR CALM. ALL NEEDS ATTENDED. REMINDED TO CALL STAFF FOR ANY ASSISTANCE OR DISCOMFORTS. APPEARS TO UNDERSTAND, CLOSELY OBSERVED. Addendum: 12/23/21 at 2100 by WALDO LARA RN DISREGARD ABOVE DOCUMENTATION. NO INTENDED FOR THIS PATIENT. WRONG PATIENT.
[2021-12-23 20:00] VITALS: BP 106/57
--- NOTE | 2021-12-23 22:15 | NUR ---
TELERN DUE MEDS GIVEN OFFERED SNACKS DECLINED. TOOK MED WITH APPLE JUICE/AND WATER ASSISTED. KEPT DRY CLEAN AND COMFORTABLE. BRONSON TO GRAVITY OUTPUT MONITORED.
[2021-12-23] MEDS: ATORVASTATIN 40 MG TABLET PO SCH (22:19)
[2021-12-23] MEDS: IV NS 0.9% 1,000 ML IV PRN (22:45)
--- NOTE | 2021-12-23 23:30 | NUR ---
TELERN URINE STILL WITH BLOOD STREAKS, ABD SLIGHTLY DISTENDED, INCREASED FLUID INTAKE. PRESENT IVF CONTINUED. WILL MONITOR OUTPUT
[2021-12-24] VITALS: BP 112/68
[2021-12-24 00:05] VITALS: BP 112/68
--- NOTE | 2021-12-24 00:10 | NUR ---
MEGAN HELD DIGOXIN AND LOPRESSOR FOR HEART OF 48
[2021-12-24] MEDS: METOPROLOL TARTRATE 25 MG TABLET PO SCH ×2 (00:30→06:00)
[2021-12-24] MEDS: DIGOXIN INJ 0.5 MG/2 ML AMPUL IV SCH (00:30)
--- NOTE | 2021-12-24 01:20 | NUR ---
TELERN HEART RATE ON 49 TO 58 TO 71 READINGS, SR WITH ARRYTHMIAS.
[2021-12-24 04:00] VITALS: BP 117/78
--- NOTE | 2021-12-24 05:46 | NUR ---
TELERN MONITOR SHOWING SINUS ARRYTHMIA RATE OF 48 TO 61 WILL HOLD LOPRESSOR.
[2021-12-24 05:49] VITALS: BP 117/78
[2021-12-24 06:15] LABS: BASOPHILS % (AUTO) 0.1 % (0.0-2.0); EOSINOPHILS % (AUTO) 0.5 % (0.0-6.0); HEMATOCRIT 36 % (39-51); LYMPHOCYTES % (AUTO) 10.1 % (20.0-44.0); MEAN CORPUSCULAR HGB CONC 33 g/dl (31.0-36.0); MEAN CORPUSCULAR VOLUME 91 fL (80-96); MONOCYTES % (AUTO) 9.9 % (2.0-12.0); NEUTROPHILS # (AUTO) 7.7 K/uL (1.8-8.9); NEUTROPHILS % (AUTO) 79.4 % (43.0-81.0); PLATELET COUNT (AUTO) 278 K/uL (150-450); RED BLOOD CELL COUNT(AUTO) 3.97 MIL/uL (4.5-6.0); WHITE BLOOD COUNT (AUTO) 9.7 K/uL (4.3-11.0)
[2021-12-24 06:46] LABS: CALCIUM, SERUM 8.1 mg/dL (8.5-10.1); CREATININE 1.1 mg/dL (0.6-1.3); MAGNESIUM 2.1 mg/dL (1.8-2.4); PHOSPHORUS 3.5 mg/dL (2.5-4.9); POTASSIUM 3.5 mmol/L (3.5-5.1)
--- NOTE | 2021-12-24 07:03 | NUR ---
TELERN REMAINS IN SINUS ARRYTHMIA RATE TO 59 TO 80 S WITH FREQUENT PVC. URINE CLEAR OF THIS TIME.
--- NOTE | 2021-12-24 07:30 | NUR ---
RN Opening Note PT AOx2, able to express his own concerns. Patient shows no signs of discomfort, states he is not to hungry. Patient asking about discharge, discussed plan of care for the day. Patient agrees. All safety precautions taken, fluids running as scheduled, Right forearm, 20g. no signs of infiltration, no pain reported when flushing. Bed at lowest position, call light and table within reach.
[2021-12-24] MEDS: CARBAMAZEPINE 200 MG TABLET PO SCH ×3 (08:33→16:22)
[2021-12-24] MEDS: PANTOPRAZOLE 40 MG TABLET.DR PO SCH (08:34)
[2021-12-24] MEDS: DILTIAZEM HCL CD 240 MG PO SCH (08:34)
[2021-12-24] MEDS: AMIODARONE HCL 200 MG TABLET PO SCH ×2 (09:20→13:26)
[2021-12-24] MEDS ORDERED: AMIO200T7 PO (13:03)
[2021-12-24] MEDS: IV NS 0.9% 1,000 ML IV PRN (13:23)
[2021-12-24 13:26] VITALS: BP 113/62
[2021-12-24] MEDS ORDERED: HYDROCODONE/APAP 10/325MG TABLET PO ONE (19:00)
--- NOTE | 2021-12-24 19:12 | NUR ---
hydraulic jack mechanic Note. PT AOx2, able to express his concerns and needs for pain medication. D/C Rogers cath at 5pm, total output was 900ml. IV removed, catheter intact applied dressing to site. Patient remained calm throughout shift, did not have any incidents. Administered all medications and fluids as ordered by provider. Transport Agency [facility] [address] is here to pickle solution maker patient and take him home, made aware of medications that need to be picked up at [facility] on [address] [place]. Daughter and made aware of d/c plan and agree. stated she is not able to pickle solution maker patient since she does not have a car at the moment. All safety precautions taken, patient transported out of unit without any issues or incidents.
== END 2021-12-24 20:00 | disposition home or self-care (01) | DRG 917 ==
LOC: ER 09:44 → TELE 12:42
PROVIDERS: ADMIT Nurse Practitioner Acute Care; ATTEND Nurse Practitioner Acute Care
DX: T42.1X1A Poisoning by iminostilbenes, accidental (unintentional), initial encounter (principal); G92.8 Other toxic encephalopathy; I21.4 Non-ST elevation (NSTEMI) myocardial infarction; N39.0 Urinary tract infection, site not specified; I48.92 Unspecified atrial flutter; Y92.009 Unspecified place in unspecified non-institutional (private) residence as the place of occurrence of the external cause; G40.909 Epilepsy, unspecified, not intractable, without status epilepticus; E78.5 Hyperlipidemia, unspecified; E78.00 Pure hypercholesterolemia, unspecified; Z87.898 Personal history of other specified conditions; Z85.22 Personal history of malignant neoplasm of nasal cavities, middle ear, and accessory sinuses; I10 Essential (primary) hypertension; F41.9 Anxiety disorder, unspecified; G89.29 Other chronic pain; G93.89 Other specified disorders of brain; M19.90 Unspecified osteoarthritis, unspecified site; M48.02 Spinal stenosis, cervical region; Z79.01 Long term (current) use of anticoagulants; B96.89 Other specified bacterial agents as the cause of diseases classified elsewhere; Z79.899 Other long term (current) drug therapy; E23.7 Disorder of pituitary gland, unspecified
CPT/HCPCS: 36415; 70450-TC; 70551-TC; 71045-TC; 72125-TC; 80048-TC; 80061-TC; 80076-TC; 80156-TC; 81001; 82140-TC; 82962-TC; 83605-TC; 83735-TC; 84100-TC; 84439-TC; 84443-TC; 84484-TC; 85025-TC; 87040-TC; 87081-TC; 87086-TC; 93307-TC; 97112-TC; 97530-TC; A4217; C9803; G0378; G0480; J0696; J1160; J1650; J2405; J7030; J7040; J7060

== ENCOUNTER 2022-10-28 16:07 | Inpatient (IN) | payer MEDICARE ==
[~2022-10-28] VITALS: Ht 182.9 cm; Wt 69.4 kg
[~2022-10-28 16:07] MED LIST changes: +AMIO200T7 PO; -APIX5TAB PO
--- NOTE | 2022-10-28 16:20 | NUR ---
pt in bed. blood collected and sent. HR 31 pt is AOx3. no complaints of dizzyness or lightheadedness
[2022-10-28] MEDS ORDERED: ALPR0.5T PO (16:46)
[2022-10-28] MEDS ORDERED: GABA300C PO (16:46)
[2022-10-28] MEDS ORDERED: DILT180T11 PO (16:46)
[2022-10-28] MEDS ORDERED: SOTA80TA PO (16:46)
[2022-10-28] MEDS ORDERED: ZOLP10TA2 PO (16:46)
[2022-10-28] MEDS ORDERED: HYDR-3980 PO (16:46)
[2022-10-28 17:16] LABS: BASOPHILS % (AUTO) 0.5 % (0.0-2.0); EOSINOPHILS % (AUTO) 2.8 % (0.0-6.0); HEMATOCRIT 41 % (39-51); HEMOGLOBIN 13.6 g/dL (13.5-17.5); LYMPHOCYTES # (AUTO) 1.7 K/uL (0.8-4.8); LYMPHOCYTES % (AUTO) 27.3 % (20.0-44.0); MEAN CORPUSCULAR HGB CONC 33 g/dl (31.0-36.0); MEAN CORPUSCULAR VOLUME 90 fL (80-96); MONOCYTES # (AUTO) 0.7 K/uL (0.1-1.30); MONOCYTES % (AUTO) 11.5 % (2.0-12.0); NEUTROPHILS # (AUTO) 3.7 K/uL (1.8-8.9); NEUTROPHILS % (AUTO) 57.9 % (43.0-81.0); PLATELET COUNT (AUTO) 278 K/uL (150-450); RED BLOOD CELL COUNT(AUTO) 4.51 MIL/uL (4.5-6.0); WHITE BLOOD COUNT (AUTO) 6.4 K/uL (4.3-11.0)
--- NOTE | 2022-10-28 17:20 | NUR ---
pt taken to radiology
[2022-10-28 17:22] LABS: CARBON DIOXIDE 28 mmol/L (21-32); CHLORIDE 101 mmol/L (98-107); CREATININE 0.9 mg/dL (0.6-1.3); GLUCOSE 106 mg/dL (74-106); POTASSIUM 4.1 mmol/L (3.5-5.1); SODIUM SERUM 139 mmol/L (136-145); UREA NITROGEN, BLOOD 21 mg/dL (7-18)
[2022-10-28 17:40] LABS: ALANINE AMINOTRANSFERASE 26 U/L (12-78); ALBUMIN 3.8 g/dL (3.4-5.0); ALKALINE PHOSPHATASE 91 U/L (46-116); ASPARTATE AMINOTRANSFERASE 27 U/L (15-37); BILIRUBIN,DIRECT 0.1 mg/dL (0.0-0.2); BILIRUBIN,TOTAL 0.4 mg/dL (0.2-1.0); TOTAL PROTEIN, SERUM 7.8 g/dL (6.4-8.2)
--- NOTE | 2022-10-28 19:05 | NUR ---
pt in bed. HR 43. no new complaints
--- NOTE | 2022-10-28 21:14 | NUR ---
REPORT GIVEN [place] SOLIS FOR SANCHEZ AT THE [facility]
--- NOTE | 2022-10-28 21:35 | NUR ---
RN/TD ADMISSION NOTE Pt arrived from ER via gurney, accompanied by RN and EMT. Pt is alert, awake, verbally responsive, oriented to name, place, and time. On room air, well sabrina, no sob, nad. Pt denies pain or discomfort, denies chest pain or dizziness at this time. Pt attached to external lunchroom monitor, reading Sinus Bradycardia 30-40's upon arrival, MD Middleton aware. Per Dr. Middleton, betablocker medications to be put on hold. Pt afebrile. PIV access on RFA #20G, patent, flushing well, dressing CDI, on SL. Skin assessment done, noted pt with scattered excoriations on left upper extremity, picture taken and placed in chart. Wound care consult order placed. Kept pt clean, dry, and comfortable. Call light within reach. Safety precaution implemented. Will continue plan of care.
--- NOTE | 2022-10-28 21:40 | NUR ---
PT TRANSPORTED TO [facility] ON GURNEY WITH EMT AND RN AT BEDSIDE. NAD DURING TRANSPORT
[2022-10-28] MEDS ORDERED: ACETAMINOPHEN 325 MG TABLET PO PRN (23:00)
[2022-10-28] MEDS ORDERED: MAGNESIUM HYDROXIDE 30 ML UDC PO PRN (23:00)
[2022-10-28] MEDS ORDERED: ZOLPIDEM TARTRATE 5 MG TABLET PO PRN (23:00)
[2022-10-28] MEDS ORDERED: Z GUARD REMEDY 4 OZ OINT TP PRN (23:00)
[2022-10-28] MEDS ORDERED: MAG HYDROX/AL HYDROX/SIMETH 30 ML UDC PO PRN (23:00)
[2022-10-28] MEDS ORDERED: ONDANSETRON HCL/PF 4 MG/2 ML VIAL IVP PRN (23:00)
[2022-10-28] MEDS: ENOXAPARIN SODIUM 40 MG/0.4 ML DISP.SYRIN SQ SCH (23:33)
[2022-10-29] VITALS: BP 156/68; TEMP 97; O2SAT 99
[2022-10-29 04:00] VITALS: BP 132/70; TEMP 97.3; O2SAT 97
--- NOTE | 2022-10-29 07:00 | NUR ---
TELE/RN NOTE Pt in stable condition at this time. External spout positioner reading Sinus Bradycardia 30's-40's throughout the shift, pt is asymptomatic, no c/o chest pain, dizziness noted. Seizure precaution implemented at all times. Report given to AM shift nurse for continuity of care. Addendum: 10/29/22 at 0711 by CHERIE ALEXANDER RN TD/RN NOTE
--- NOTE | 2022-10-29 07:10 | NUR ---
RN NOTE RECEIVED PATIENT IN BED RESTING ALERT ORIETNEDX4 VERBALLY RESPONSIVE ON 2L OXYGEN VIA NASAL CANNULA,IV ACCESS ON RIGHT FOREARM INTACT PATENT,ON CARDIAC MONITORING BRADYCARDIA,CONTIENT BOWEL/BLADDER,SAFETY MEASURE IMPLEMENT BED IN LOW POSITION AND LOCKED,CALL LIGHT WITHIN REACH CONTINUE TO MONITOR.
[2022-10-29] MEDS: PANTOPRAZOLE 40 MG TABLET.DR PO SCH (07:31)
[2022-10-29 08:00] VITALS: BP 129/57; TEMP 98; O2SAT 98
[2022-10-29] MEDS ORDERED: CARBAMAZEPINE 200 MG TABLET PO SCH (09:00)
--- NOTE | 2022-10-29 09:00 | NUR ---
RN NOTE CARBAMAZEPINE 200 MG AT 0900 NOT GIVEN PER MED ORDER DAIRY CONSULTANT JENNIFER PRATT, CARBAMAZEPINE IN BLOOD 12.8 IN HIGH LEVEL CONTINUE TO MONITOR.
[2022-10-29] MEDS: ALPRAZOLAM 0.5 MG TABLET PO SCH (09:04)
--- NOTE | 2022-10-29 09:33 | NUR ---
WOUND CARE CONSULT: PT PRESENTS WITH SOME DRY EXCORIATIONS AND SCABS TO UPPER EXTREMITIES AND BLANCHABLE REDNESS TO SACRAL AREA, PRESENT ON ADMISSION. DISCUSSED SKIN PROTECTION WITH NURSING STAFF. PT DEMONSTRATES ABILITY TO ASSIST WITH TURNING AND REPOSITIONING IN BED. MD IN AGREEMENT WITH PLAN OF CARE.
[2022-10-29 10:53] LABS: BASOPHILS % (AUTO) 0.5 % (0.0-2.0); EOSINOPHILS % (AUTO) 2.3 % (0.0-6.0); HEMATOCRIT 37 % (39-51); HEMOGLOBIN 12.8 g/dL (13.5-17.5); LYMPHOCYTES # (AUTO) 0.9 K/uL (0.8-4.8); LYMPHOCYTES % (AUTO) 18.1 % (20.0-44.0); MEAN CORPUSCULAR HGB CONC 35 g/dl (31.0-36.0); MEAN CORPUSCULAR VOLUME 89 fL (80-96); MONOCYTES # (AUTO) 0.5 K/uL (0.1-1.30); MONOCYTES % (AUTO) 9.8 % (2.0-12.0); NEUTROPHILS # (AUTO) 3.6 K/uL (1.8-8.9); NEUTROPHILS % (AUTO) 69.3 % (43.0-81.0); PLATELET COUNT (AUTO) 235 K/uL (150-450); RED BLOOD CELL COUNT(AUTO) 4.15 MIL/uL (4.5-6.0); WHITE BLOOD COUNT (AUTO) 5.2 K/uL (4.3-11.0)
[2022-10-29 10:54] LABS: CALCIUM, SERUM 8.6 mg/dL (8.5-10.1); CARBON DIOXIDE 26 mmol/L (21-32); CHLORIDE 103 mmol/L (98-107); CREATININE 0.5 mg/dL (0.6-1.3); GLUCOSE 131 mg/dL (74-106); PHOSPHORUS 3.3 mg/dL (2.5-4.9); POTASSIUM 3.6 mmol/L (3.5-5.1); SODIUM SERUM 138 mmol/L (136-145); UREA NITROGEN, BLOOD 14 mg/dL (7-18)
[2022-10-29 12:00] VITALS: BP 145/70; TEMP 98; O2SAT 100
[2022-10-29] MEDS ORDERED: LEVETIRACETAM (500MG) 1,000 MG in IV NS 0.9% 100 ML IV ONE (13:00)
[2022-10-29 16:00] VITALS: BP 135/67; TEMP 98.3; O2SAT 100
[2022-10-29] MEDS: ENSURE ENLIVE 237 ML LIQUID (VANILLA) PO SCH (16:15)
[2022-10-29] MEDS: ASPIRIN 81 MG TAB.CHEW PO SCH (17:19)
[2022-10-29 17:50] LABS: CHOLESTEROL 210 mg/dL (<200); HDL CHOLESTEROL 53 mg/dL (40-60); LDL 134 mg/dL (0-99); TRIGLYCERIDES 84 mg/dL (30-150)
--- NOTE | 2022-10-29 18:29 | NUR ---
RN NOTE PATIENT REMAINS ALERT ORIENTEDX4 VERBALLY RESPONSIVE ON 2L OXYGEN VIA NASAL CANNULA O2:98% NO SOB NOT ACUTE DISTRESS NOTED,HR 54 BRADYCARDIA,ALL DUE MEDS GIVEN MD ORDERED KEPT CLEAN AND DRY ALL THE TIME,KEPT CALL LIGHT WITHIN REACH,KEPT HEAD OF THE BED ELEVATED WILL ENDORSE NEXT UPCOMING NURSE FOR CONTINUATION OF CARE.
--- NOTE | 2022-10-29 19:30 | NUR ---
RN NOTE RECEIVED PATIENT IN BED RESTING ALERT ORIETNEDX4 VERBALLY RESPONSIVE ON 2L OXYGEN VIA NASAL CANNULA,IV ACCESS ON RIGHT FOREARM INTACT PATENT,ON CARDIAC MONITORING BRADYCARDIA,CONTINENT BOWEL/BLADDER,SAFETY MEASURE IMPLEMENT BED IN LOW POSITION AND LOCKED,CALL LIGHT WITHIN REACH CONTINUE TO MONITOR.
[2022-10-29 20:00] VITALS: BP 121/64; TEMP 98.3; O2SAT 100
[2022-10-29] MEDS ORDERED: LEVETIRACETAM SOL (5 ML) 100 MG/ML UDC PO SCH (21:00)
[2022-10-29] MEDS: GABAPENTIN 300 MG CAPSULE PO SCH (21:32)
[2022-10-29] MEDS: ZOLPIDEM TARTRATE 10 MG TABLET PO SCH (21:33)
[2022-10-29] MEDS: ENOXAPARIN SODIUM 40 MG/0.4 ML DISP.SYRIN SQ SCH (23:02)
[2022-10-30] VITALS: BP 132/62; TEMP 98; O2SAT 100
[2022-10-30 04:00] VITALS: BP 141/78; TEMP 98; O2SAT 100
[2022-10-30] MEDS: HYDROCODONE/APAP 10/325MG TABLET PO PRN ×2 (06:33→15:37)
[2022-10-30] MEDS: PANTOPRAZOLE 40 MG TABLET.DR PO SCH (06:33)
[2022-10-30 07:01] LABS: BASOPHILS # (AUTO) 0.1 K/uL (0.0-0.2); BASOPHILS % (AUTO) 0.7 % (0.0-2.0); EOSINOPHILS % (AUTO) 1.9 % (0.0-6.0); HEMATOCRIT 40 % (39-51); HEMOGLOBIN 13.7 g/dL (13.5-17.5); LYMPHOCYTES # (AUTO) 1.2 K/uL (0.8-4.8); LYMPHOCYTES % (AUTO) 13.4 % (20.0-44.0); MEAN CORPUSCULAR HGB CONC 34 g/dl (31.0-36.0); MEAN CORPUSCULAR VOLUME 91 fL (80-96); MONOCYTES # (AUTO) 0.9 K/uL (0.1-1.30); MONOCYTES % (AUTO) 10.1 % (2.0-12.0); NEUTROPHILS # (AUTO) 6.6 K/uL (1.8-8.9); NEUTROPHILS % (AUTO) 73.9 % (43.0-81.0); PLATELET COUNT (AUTO) 216 K/uL (150-450); RED BLOOD CELL COUNT(AUTO) 4.45 MIL/uL (4.5-6.0); WHITE BLOOD COUNT (AUTO) 8.9 K/uL (4.3-11.0)
--- NOTE | 2022-10-30 07:05 | NUR ---
RN NOTES PATIENT REMAINS STABLE NO SIGNIFICANT CHANGES IN HEALTH CONDITION. ALL DUE MEDS GIVEN ORDERED. NO SEIZURE NOTED THIS SHIFT. WILL ENDORSED TO MORNING SHIFT FOR SANCHEZ
[2022-10-30 07:11] LABS: CREATININE 0.7 mg/dL (0.6-1.3); MAGNESIUM 2.1 mg/dL (1.8-2.4); PHOSPHORUS 3.7 mg/dL (2.5-4.9); POTASSIUM 3.7 mmol/L (3.5-5.1)
--- NOTE | 2022-10-30 07:30 | NUR ---
ISABELA RN OPENING NOTE RECEIVED PATIENT IN BED RESTING ALERT ORIETNEDX4 VERBALLY RESPONSIVE ON 2L OXYGEN VIA NASAL CANNULA,IV ACCESS ON RIGHT FOREARM INTACT PATENT,ON CARDIAC MONITORING BRADYCARDIA HR 52. CONTINENT BOWEL/BLADDER. SEIZURE PRECAUTION CONTINUED. SAFETY MEASURE IMPLEMENT BED IN LOW POSITION AND LOCKED,CALL LIGHT WITHIN REACH. PLAN OF CARE CONTINUE.
[2022-10-30 08:00] VITALS: BP 158/67; TEMP 98; O2SAT 98
[2022-10-30] MEDS: ENSURE ENLIVE 237 ML LIQUID (VANILLA) PO SCH ×2 (08:01→16:11)
[2022-10-30] MEDS: ASPIRIN 81 MG TAB.CHEW PO SCH (08:19)
[2022-10-30] MEDS: ALPRAZOLAM 0.5 MG TABLET PO SCH (08:20)
[2022-10-30] MEDS: LEVETIRACETAM (250 MG) 250 MG TABLET PO SCH ×2 (08:20→21:34)
--- NOTE | 2022-10-30 09:00 | NUR ---
SEEN BY [facility] MANAGER ROOFING, WITH ORDER TO ASK NEURO IF THEY STILL WANT TO DO THE MARIKA, IF NOT [facility] CAN DISCHARGE THE PATIENT.
[2022-10-30] MEDS: CYANOCOBALAMIN 500 MCG TABLET PO SCH (10:40)
[2022-10-30 12:00] VITALS: BP 155/82; TEMP 98.5; O2SAT 98
[2022-10-30] MEDS: MORPHINE SULFATE INJ 2 MG/ML DISP.SYRIN IV PRN ×2 (12:18→19:17)
[2022-10-30 16:00] VITALS: BP 178/83; TEMP 98.5; O2SAT 97
--- NOTE | 2022-10-30 16:16 | NUR ---
NOTED BP 178/83, DENIES ANY CHEST PAIN OR HEADACHE, INFORMED [facility] PARCEL CONTRACTOR, AWAITING FOR ORDER. STAT XRAY OF THE LEFT SHOULDER RESULTS RECEIVED, INFORMED [facility] [employer]CEL [employer], NO NEW ORDER.
--- NOTE | 2022-10-30 16:55 | NUR ---
NEW ORDER FROM [facility] IN FLIGHT CREW MEMBER, HYDRALAZINE 10MG IV Q4HR PRN FOR SBP >170, NOTED AND CARRIED OUT.
[2022-10-30] MEDS: hydrALAZINE HCL IV 20 MG VIAL IV PRN (17:19)
--- NOTE | 2022-10-30 18:00 | NUR ---
RECHECKED BP 155/87
--- NOTE | 2022-10-30 18:38 | NUR ---
ISABELA RN CLOSING NOTE PATIENT IN BED AWAKE, ALERT ORIETNED X 3-4, VERBALLY RESPONSIVE. ON ROOM AIR, TOLERATING WELL, NO SOB NOTED, RESPIRATION EVEN AND UNLABORED. IV ACCESS ON RIGHT FOREARM INTACT PATENT,FLUSHES WELL. ON CARDIAC MONITORING SINUS TACH HR 113. CONTINENT BOWEL/BLADDER. SEIZURE PRECAUTION CONTINUED. SAFETY MEASURE IMPLEMENT BED IN LOW POSITION AND LOCKED,CALL LIGHT WITHIN REACH. BED ALARM ON. WILL ENDORSE TO NIGHT NURSE FOR SANCHEZ.
--- NOTE | 2022-10-30 19:30 | NUR ---
RN NOTE Report received from Aixa Donohue RN, patient in bed, AO x 2-3, in no acute distress, saturation at 100% on room air, SR on the monitor HR is 92. IV line at RFA 20g patent and flushing well, saline locked. Patient ambulates with assistance. Safety measures in place, bed is locked and at lowest position, HOB elevated, call light within reach of patient. Will monitor and reassess.
[2022-10-30 20:00] VITALS: BP 147/71; TEMP 98.7; O2SAT 95
[2022-10-30] MEDS: GABAPENTIN 300 MG CAPSULE PO SCH (21:34)
[2022-10-30] MEDS: ZOLPIDEM TARTRATE 10 MG TABLET PO SCH (21:34)
[2022-10-30] MEDS ORDERED: ATORVASTATIN 10 MG TABLET PO SCH (22:00)
[2022-10-31] VITALS: BP 159/88; TEMP 98.6; O2SAT 98
[2022-10-31] MEDS: ENOXAPARIN SODIUM 40 MG/0.4 ML DISP.SYRIN SQ SCH (00:46)
[2022-10-31 04:00] VITALS: BP 154/82; TEMP 97.9; O2SAT 98
[2022-10-31] MEDS: HYDROCODONE/APAP 10/325MG TABLET PO PRN (06:02)
[2022-10-31 06:25] LABS: BASOPHILS % (AUTO) 0.2 % (0.0-2.0); EOSINOPHILS % (AUTO) 0.2 % (0.0-6.0); HEMATOCRIT 41 % (39-51); HEMOGLOBIN 13.9 g/dL (13.5-17.5); LYMPHOCYTES # (AUTO) 1.2 K/uL (0.8-4.8); LYMPHOCYTES % (AUTO) 12.7 % (20.0-44.0); MEAN CORPUSCULAR HGB CONC 34 g/dl (31.0-36.0); MEAN CORPUSCULAR VOLUME 90 fL (80-96); MONOCYTES # (AUTO) 1.1 K/uL (0.1-1.30); NEUTROPHILS # (AUTO) 6.8 K/uL (1.8-8.9); NEUTROPHILS % (AUTO) 74.9 % (43.0-81.0); PLATELET COUNT (AUTO) 233 K/uL (150-450); RED BLOOD CELL COUNT(AUTO) 4.59 MIL/uL (4.5-6.0); WHITE BLOOD COUNT (AUTO) 9.1 K/uL (4.3-11.0)
[2022-10-31 07:04] LABS: CALCIUM, SERUM 8.8 mg/dL (8.5-10.1); CARBON DIOXIDE 27 mmol/L (21-32); CHLORIDE 99 mmol/L (98-107); CREATININE 0.5 mg/dL (0.6-1.3); GLUCOSE 109 mg/dL (74-106); POTASSIUM 3.7 mmol/L (3.5-5.1); SODIUM SERUM 136 mmol/L (136-145); UREA NITROGEN, BLOOD 15 mg/dL (7-18)
[2022-10-31 07:25] LABS: PHOSPHORUS 3.5 mg/dL (2.5-4.9)
--- NOTE | 2022-10-31 07:31 | NUR ---
ISABELA RN OPEN NOTE PATIENT IN BED AWAKE, ALERT ORIETNED X 3-4, VERBALLY RESPONSIVE. ON ROOM AIR, TOLERATING WELL, NO SOB NOTED, RESPIRATION EVEN AND UNLABORED. IV ACCESS ON RIGHT FOREARM INTACT PATENT,FLUSHES WELL. ON CARDIAC MONITORING SR, . SEIZURE PRECAUTION IN PLACE . SAFETY MEASURE IMPLEMENT BED IN LOW POSITION AND LOCKED,CALL LIGHT WITHIN REACH. BED ALARM ON. WILL CONTINUE TO MONITOR
[2022-10-31 08:00] VITALS: BP 146/90; TEMP 97.7; O2SAT 98
[2022-10-31] MEDS: ASPIRIN 81 MG TAB.CHEW PO SCH (08:04)
[2022-10-31] MEDS: PANTOPRAZOLE 40 MG TABLET.DR PO SCH (08:04)
[2022-10-31] MEDS: ALPRAZOLAM 0.5 MG TABLET PO SCH (08:05)
[2022-10-31] MEDS: LEVETIRACETAM (250 MG) 250 MG TABLET PO SCH (08:06)
[2022-10-31] MEDS: CYANOCOBALAMIN 500 MCG TABLET PO SCH (08:06)
[2022-10-31] MEDS: ENSURE ENLIVE 237 ML LIQUID (VANILLA) PO SCH ×2 (08:12→16:05)
[2022-10-31] MEDS ORDERED: LEVE250T2 PO (11:14)
[2022-10-31] MEDS ORDERED: ATOR10TA PO (11:14)
[2022-10-31] MEDS ORDERED: ASPI-1169 PO (11:14)
[2022-10-31] MEDS ORDERED: CYAN500T64 PO (11:14)
[2022-10-31 12:00] VITALS: BP 119/72; TEMP 98.3; O2SAT 98
[2022-10-31] MEDS ORDERED: ENSURE ENLIVE 237 ML LIQUID (VANILLA) PO SCH (13:00)
[2022-10-31 16:10] VITALS: BP 125/75; TEMP 98.5; O2SAT 98
[2022-10-31 16:45] VITALS: BP 165/78
[2022-10-31] MEDS: hydrALAZINE HCL IV 20 MG VIAL IV PRN (16:45)
--- NOTE | 2022-10-31 18:23 | NUR ---
SALES REPRESENTATIVE EDUCATION COURSES NOTE DISCHARGE ORDER RECIVED. PATIENT IS AT STABLE CONDITION .DISCHARGE INSTRUCTIONS PROVIDED TO THE RN [facility] ..PATIENT IS AT STABLE CONDITION, DISCHARGE INSTRUCTIONS PROVIDED IN WRITTEN AND VERBALLY .CLASSIFICATION CONTROL CLERK AT THE [facility] VERBALIZED UNDERSTANDING.
== END 2022-10-31 18:25 | DRG 308 ==
LOC: ER 16:10 → TELE1 21:10 → TELE-TD 22:53 → MEDSG1 10-31 14:31
PROVIDERS: ADMIT Student in an Organized Health Care Education/Training Program; ATTEND Nurse Practitioner Acute Care
DX: R00.1 Bradycardia, unspecified (principal); G92.8 Other toxic encephalopathy; T42.1X1A Poisoning by iminostilbenes, accidental (unintentional), initial encounter; I48.92 Unspecified atrial flutter; G40.909 Epilepsy, unspecified, not intractable, without status epilepticus; M19.90 Unspecified osteoarthritis, unspecified site; M48.02 Spinal stenosis, cervical region; E78.5 Hyperlipidemia, unspecified; Z79.82 Long term (current) use of aspirin; F01.50 Vascular dementia, unspecified severity, without behavioral disturbance, psychotic disturbance, mood disturbance, and anxiety; Z86.73 Personal history of transient ischemic attack (TIA), and cerebral infarction without residual deficits; G93.89 Other specified disorders of brain; I10 Essential (primary) hypertension; T44.7X5A Adverse effect of beta-adrenoreceptor antagonists, initial encounter; Y92.009 Unspecified place in unspecified non-institutional (private) residence as the place of occurrence of the external cause
CPT/HCPCS: 36415; 70450-TC; 71045-TC; 73030-TC; 80048-TC; 80061-TC; 80076-TC; 80156-TC; 82607-TC; 83735-TC; 84100-TC; 84443-TC; 84484-TC; 85025-TC; 87081-TC; 93307-TC; 95819-TC; 97112-TC; 97116-TC; 97530-TC; A4223; G0378; J0360; J1650; J1953; J2270; J7030; J7050